=== PATIENT | female | born 1985 | race Caucasian/White ===

== ENCOUNTER 2020-02-22 11:42 | Outpatient (REF) | payer BC, SELFPAY ==
[2020-02-22 12:26] LABS: MANUAL DIFF FLAG NO
[2020-02-22 12:33] LABS: Basophils Percent Auto 0.7 % (0-2); Eosinophils Absolute Auto 0.1 X10*3/uL (0.0-0.4); Eosinophils Percent Auto 1.5 % (0-4); Hematocrit 33.6 % (37-47); Imm Gran Abs Auto 0.02 X10*3/uL (0.00-0.03); Imm Gran Pct Auto 0.4 % (0.0-0.4); Lymphocytes Absolute Auto 1.6 X10*3/uL (1.2-4.9); Lymphocytes Percent Auto 28.7 % (20-40); Mean Corpuscular HGB Conc 29.8 g/dl (31.0-35.0); Mean Corpuscular Hemoglobin 23.8 pg (27.0-33.0); Mean Corpuscular Volume 79.8 fL (80-98); Mean Platelet Volume 10.8 fL (9.4-12.3); Monocytes Absolute Auto 0.3 X10*3/uL (0.1-1.2); Neutrophils Absolute Auto 3.5 X10*3/uL (2.0-8.3); Neutrophils Percent Auto 62.7 % (45-73); Platelet Count 330 X10*3/uL (160-400); Red Blood Count 4.21 X10*6/uL (4.20-5.50); Red Cell Distribution Width 15.5 % (11.0-16.0); White Blood Count 5.5 X10*3/uL (4.8-10.8)
[2020-02-22 13:38] LABS: Anion Gap 10 (12-20); Blood Urea Nitrogen 9 mg/dL (9-16); Calcium 9.2 mg/dL (8.4-10.2); Carbon Dioxide 29 mmol/L (22-29); Chloride 105 mmol/L (96-108); Cholesterol 165 mg/dL; Estimated Glomerular Filt Rate > 60; Glucose Fasting 86 mg/dL (60-99); HDL Cholesterol 43 mg/dL; LDL Cholesterol Calculated 106 mg/dl; Potassium 4.8 mmol/l (3.3-5.1); Sodium 139 mmol/L (135-145); Triglycerides 83 mg/dL
[2020-02-22 13:59] LABS: TSH reflex Free T4 0.88 mIU/mL (0.32-4.0)
[2020-02-22 14:32] LABS: Reflex LDLD? No
== END 2020-02-22 11:43 | disposition home or self-care (01) ==
LOC: HO.LAB 11:42
PROVIDERS: PCP Nurse Practitioner Family; Visit Provider Nurse Practitioner Family
DX: Z00.00 Encounter for general adult medical examination without abnormal findings (principal); Z13.29 Encounter for screening for other suspected endocrine disorder; Z13.220 Encounter for screening for lipoid disorders
CPT/HCPCS: 36415; 80048; 80061; 84443; 85025

== ENCOUNTER 2020-02-23 13:52 | Emergency (ER) | payer BC, SELFPAY ==
[2020-02-23 14:13] VITALS: BP 148/94; PULSE 82; RESP 18; TEMP 37.4; O2SAT 100; BMI 47.7
[2020-02-23 14:56] LABS: Glucose Urine UA NEG (NEG); Leukocyte Esterase Urine NEG (NEG); Nitrite Urine NEG (NEG); Urine Blood 2+ (NEG); Urine Ketones NEG (NEG); Urine Protein NEG (NEG-TRACE)
[2020-02-23 15:01] LABS: UPreg QC Valid YES; Urine Pregnancy NEGATIVE (NEGATIVE)
[2020-02-23 15:02] LABS: Appearance Urine HAZY; Color Urine YELLOW
[2020-02-23 15:14] LABS: Amorphous Sediment Urine 1+ /LPF; Mucus Urine 2+ /LPF; Squamous Epithelial Cell Urine 2+ /LPF
[2020-02-23 16:45] VITALS: BP 150/90; PULSE 76; RESP 20; TEMP 37.2; O2SAT 97
[2020-02-23 16:52] VITALS: BP 156/87; PULSE 154
--- NOTE | 2020-02-23 16:54 | PC.NURSE ---
SEEN BY DR HASSAN AT THIS TIME
--- NOTE | 2020-02-23 17:04 | ED.FEMALEGU ---
HPI - Female Genitourinary General Chief complaint: Urogenital-Female Stated complaint: vaginal bleeding Time Seen by Provider: 02/23/20 16:46 Source: patient Mode of arrival: ambulatory Limitations: no limitations History of Present Illness HPI Narrative: Patient received Depo shot 2 months ago since for the 1st time since then been having heavy periods changing about 6-7 pads a day seen primary care doctor yesterday that the labs which is not available at this time. Patient feels weak and tired no shortness of breath no significant abdominal pain no history of heavy period in the past Related Data Previous Rx's Medication Instructions Recorded ferrous sulfate 325 mg PO DAILY #30 tab 02/23/20 Allergies Allergy/AdvReac Type Severity Reaction Status Date / Time No Known Allergies Allergy Verified 02/23/20 14:10 Review of Systems Review of Systems: Yes all other systems are reviewed and are negative Constitutional: Constitutional: Reports fatigue and Reports weakness Eyes: Eyes: Reports no additional eye complaints ENT: Reports system reviewed and no additional complaints, except as documented Cardiovascular: Cardiovascular: Reports no additional cardiovascular complaints Respiratory: Respiratory: Reports no additional respiratory complaints Gastrointestinal: Gastrointestinal: Reports no additional gastrointestinal complaints Genitourinary: Genitourinary: Reports as per HPI Neurologic: Reports weakness Endocrine: Endocrine: Reports fatigue [facility] Past Medical History Medical History PCOS (polycystic ovarian syndrome) Social History Social History Advance Directives: No Advance Directives Information Provided: Yes Physical Exam Vital Signs and I&O and Narrative: Vital Signs and I&O: Vital Signs Temp 98.9 F 02/23/20 16:45 Pulse 81 02/23/20 18:15 Resp 16 02/23/20 18:15 BP 141/83 H 02/23/20 18:15 Pulse Ox 100 02/23/20 18:15 Intake & Output 02/23/20 02/23/20 02/24/20 06:59 18:59 06:59 Weight 146.51 kg Body Mass Index 47.7 Const: General: cooperative and healthy appearing Nutritional Appearance: average body habitus Orientation/consciousness: oriented to person, oriented to place and oriented to time Limitations: no limitations HENMT: Head: Yes normal to inspection Ears: hearing grossly normal bilaterally Eyes: General: appearance normal, both eyes and all related structures Conjunctivae: conjunctivae normal Sclerae: sclerae normal Neck: Neck: Yes normal visual inspection Chest: Chest palpation & inspection: normal inspection of the chest Resp: Effort & Inspection: normal respiratory effort Auscultation: clear to auscultation bilaterally Cardio: Rate: regular rate Rhythm: regular rhythm Heart sounds: S1 normal heart sound present and S2 normal heart sound present GI: Inspection: Yes normal to inspection Palpation (GI): Soft to palpation and nontender Percussion: Yes normal to percussion Auscultation: normal bowel sounds Neuro: General: oriented to person, oriented to place and oriented to time Extrem: General: Yes normal to inspection Course Course Course Narrative: patient with stable H&H is 9.4 yesterday was 10. patient without any orthostatic hypotension feeling much better otherwise case discussed with loss prevention specialist Dr. Lehman advised to follow-up as outpatient. MDM - Female Genitourinary Lab Data Result diagrams: 02/23/20 17:06 02/23/20 17:06 Labs: Lab Results 02/23/20 02/23/20 02/23/20 Range/Units 14:30 14:30 17:06 WBC 6.8 (4.8-10.8) X10*3/uL RBC 3.96 L (4.20-5.50) X10*6/uL Hgb 9.4 L (12.0-16.0) g/dl Hct 31.5 L (37-47) % MCV 79.5 L (80-98) fL MCH 23.7 L (27.0-33.0) pg MCHC 29.8 L (31.0-35.0) g/dl RDW 15.5 (11.0-16.0) % Plt Count 323 (160-400) X10*3/uL MPV 10.7 (9.4-12.3) fL Immature Gran % (Auto) 0.3 (0.0-0.4) % Neut % (Auto) 59.9 (45-73) % Lymph % (Auto) 30.8 (20-40) % [place] % (Auto) 6.5 (2-11) % Eos % (Auto) 2.1 (0-4) % Baso % (Auto) 0.4 (0-2) % Neut # (Auto) 4.0 (2.0-8.3) X10*3/uL Lymph # (Auto) 2.1 (1.2-4.9) X10*3/uL [place] # (Auto) 0.4 (0.1-1.2) X10*3/uL Eos # (Auto) 0.1 (0.0-0.4) X10*3/uL Baso # (Auto) 0.0 (0.0-0.2) X10*3/uL Abs Immat Gran (auto) 0.02 (0.00-0.03) X10*3/uL Absolute Nucleated RBC 0.000 (0.0-0.012) X10*3/uL Nucleated RBC % (auto) 0.0 (0.0-0.2) /100WBC Sodium (135-145) mmol/L Potassium (3.3-5.1) mmol/l Chloride (96-108) mmol/L Carbon Dioxide (22-29) mmol/L Anion Gap (12-20) BUN (9-16) mg/dL Creatinine (0.5-1.4) mg/dL Estim Creat Clear Calc Estimated GFR Random Glucose (60-115) mg/dL Calcium (8.4-10.2) mg/dL Urine Color YELLOW Urine Appearance HAZY Urine pH 7.0 (5.0-8.0) Ur Specific [place] 1.020 (1.005-1.025) Urine Protein NEG (NEG-TRACE) MG/DL Urine Glucose (UA) NEG (NEG) MG/DL Urine Ketones NEG (NEG) MG/DL Urine Blood 2+ H (NEG) Urine Nitrite NEG (NEG) Ur Leukocyte Esterase NEG (NEG) Urine RBC 15-29 H (0) /HPF Urine WBC 1-4 (0-4) /HPF Ur Squamous Epith Cells 2+ /LPF Amorphous Sediment 1+ /LPF Urine Bacteria NONE /LPF Urine Mucus 2+ /LPF Urine Test NEGATIVE (NEGATIVE) 02/23/20 Range/Units 17:06 WBC (4.8-10.8) X10*3/uL RBC (4.20-5.50) X10*6/uL Hgb (12.0-16.0) g/dl Hct (37-47) % MCV (80-98) fL MCH (27.0-33.0) pg MCHC (31.0-35.0) g/dl RDW (11.0-16.0) % Plt Count (160-400) X10*3/uL MPV (9.4-12.3) fL Immature Gran % (Auto) (0.0-0.4) % Neut % (Auto) (45-73) % Lymph % (Auto) (20-40) % [place] % (Auto) (2-11) % Eos % (Auto) (0-4) % Baso % (Auto) (0-2) % Neut # (Auto) (2.0-8.3) X10*3/uL Lymph # (Auto) (1.2-4.9) X10*3/uL [place] # (Auto) (0.1-1.2) X10*3/uL Eos # (Auto) (0.0-0.4) X10*3/uL Baso # (Auto) (0.0-0.2) X10*3/uL Abs Immat Gran (auto) (0.00-0.03) X10*3/uL Absolute Nucleated RBC (0.0-0.012) X10*3/uL Nucleated RBC % (auto) (0.0-0.2) /100WBC Sodium 139 (135-145) mmol/L Potassium 4.6 (3.3-5.1) mmol/l Chloride 106 (96-108) mmol/L Carbon Dioxide 26 (22-29) mmol/L Anion Gap 12 (12-20) BUN 13 (9-16) mg/dL Creatinine 0.80 (0.5-1.4) mg/dL Estim Creat Clear Calc 150.9 Estimated GFR > 60 Random Glucose 92 (60-115) mg/dL Calcium 8.9 (8.4-10.2) mg/dL Urine Color Urine Appearance Urine pH (5.0-8.0) Ur Specific [place] (1.005-1.025) Urine Protein (NEG-TRACE) MG/DL Urine Glucose (UA) (NEG) MG/DL Urine Ketones (NEG) MG/DL Urine Blood (NEG) Urine Nitrite (NEG) Ur Leukocyte Esterase (NEG) Urine RBC (0) /HPF Urine WBC (0-4) /HPF Ur Squamous Epith Cells /LPF Amorphous Sediment /LPF Urine Bacteria /LPF Urine Mucus /LPF Urine Test (NEGATIVE) Discharge Plan Discharge Clinical Impression: DUB (dysfunctional uterine bleeding) Patient Disposition: Home, Self-Care Instructions: Dysfunctional Uterine Bleeding (ED) Additional Instructions: take iron tablet daily. your bleeding will continue for few more weeks. Follow-up with loss prevention specialist if bleeding gets worse for further evaluation Prescriptions: New ferrous sulfate 325 mg (65 mg iron) tablet 325 mg PO DAILY Qty: 30 RF: 0
[2020-02-23 17:13] LABS: MANUAL DIFF FLAG NO
[2020-02-23 17:14] LABS: Basophils Percent Auto 0.4 % (0-2); Eosinophils Absolute Auto 0.1 X10*3/uL (0.0-0.4); Eosinophils Percent Auto 2.1 % (0-4); Hematocrit 31.5 % (37-47); Hemoglobin 9.4 g/dl (12.0-16.0); Imm Gran Abs Auto 0.02 X10*3/uL (0.00-0.03); Imm Gran Pct Auto 0.3 % (0.0-0.4); Lymphocytes Absolute Auto 2.1 X10*3/uL (1.2-4.9); Lymphocytes Percent Auto 30.8 % (20-40); Mean Corpuscular HGB Conc 29.8 g/dl (31.0-35.0); Mean Corpuscular Hemoglobin 23.7 pg (27.0-33.0); Mean Corpuscular Volume 79.5 fL (80-98); Mean Platelet Volume 10.7 fL (9.4-12.3); Monocytes Absolute Auto 0.4 X10*3/uL (0.1-1.2); Monocytes Percent Auto 6.5 % (2-11); Neutrophils Percent Auto 59.9 % (45-73); Platelet Count 323 X10*3/uL (160-400); Red Blood Count 3.96 X10*6/uL (4.20-5.50); Red Cell Distribution Width 15.5 % (11.0-16.0); White Blood Count 6.8 X10*3/uL (4.8-10.8)
[2020-02-23 17:43] LABS: Anion Gap 12 (12-20); Blood Urea Nitrogen 13 mg/dL (9-16); Calcium 8.9 mg/dL (8.4-10.2); Carbon Dioxide 26 mmol/L (22-29); Chloride 106 mmol/L (96-108); Creatinine Clr Calc Pharmacy 150.9; Estimated Glomerular Filt Rate > 60; Glucose Random 92 mg/dL (60-115); Potassium 4.6 mmol/l (3.3-5.1); Sodium 139 mmol/L (135-145)
[2020-02-23 18:15] VITALS: BP 141/83; PULSE 81; RESP 16; O2SAT 100
--- NOTE | 2020-02-23 18:18 | PC.NURSE ---
ALL LABS RESULTED. AWAITING REEVAL BY PROVIDER
== END 2020-02-23 19:41 | disposition home or self-care (01) ==
PROVIDERS: Emergency Provider Internal Medicine; PCP Nurse Practitioner Family
DX: N93.8 Other specified abnormal uterine and vaginal bleeding (principal)
CPT/HCPCS: 36415; 80048; 81001; 81003; 81025; 85025; 99283

== ENCOUNTER 2020-03-14 09:50 | Outpatient (REF) | payer BC, SELFPAY ==
[2020-03-14 12:41] LABS: Hematocrit 30.1 % (37-47); Hemoglobin 8.7 g/dl (12.0-16.0); Mean Corpuscular HGB Conc 28.9 g/dl (31.0-35.0); Mean Corpuscular Hemoglobin 23.2 pg (27.0-33.0); Mean Corpuscular Volume 80.3 fL (80-98); Mean Platelet Volume 11.1 fL (9.4-12.3); Platelet Count 327 X10*3/uL (160-400); Red Blood Count 3.75 X10*6/uL (4.20-5.50); Red Cell Distribution Width 15.5 % (11.0-16.0); White Blood Count 5.8 X10*3/uL (4.8-10.8)
[2020-03-15 01:51] LABS: CT PCR NOT DETECTED (Not Detect.); NG PCR NOT DETECTED (Not Detect.)
[2020-03-15 11:27] LABS: BV Int Neg Control Negative (Negative); BV Int Pos Control Positive (Positive)
[2020-03-18 22:07] LABS: HPV mRNA E6/E7 Not Detected (Not Detected)
== END 2020-03-14 09:51 | disposition home or self-care (01) ==
LOC: HO.LAB 09:50
PROVIDERS: PCP Nurse Practitioner Family; Referring Provider Nurse Practitioner Family; Visit Provider Advanced Practice Midwife
DX: N93.9 Abnormal uterine and vaginal bleeding, unspecified (principal); E66.01 Morbid (severe) obesity due to excess calories; Z20.2 Contact with and (suspected) exposure to infections with a predominantly sexual mode of transmission; Z30.09 Encounter for other general counseling and advice on contraception; Z68.42 Body mass index [BMI] 45.0-49.9, adult
CPT/HCPCS: 58100; 36415; 85027; 87480; 87491; 87510; 87591; 87624; 87625; 87660; 88142; 88305

== ENCOUNTER 2020-03-28 10:50 | Outpatient (REF) | payer BC, SELFPAY ==
--- NOTE | 2020-03-28 10:56 | US_ITS ---
EXAMINATION: US PELVIC, COMPLETE CLINICAL INFORMATION: Abnormal uterine bleeding. Last menstrual period since December and ongoing. No pain. COMPARISON: None. TECHNIQUE: Transabdominal and transvaginal imaging was performed. FINDINGS: The uterus is anteverted of normal size and echogenicity measuring 7.2 x 3.8 x 4.8 cm. A regular homogeneous endometrium is identified measuring 0.2 cm. Small nabothian cysts are seen at the cervix. Both ovaries are of normal size and echogenicity. The right measures 3.7 x 1.7 x 2.3 cm for a volume of 7.7 mL. The left measures 2.8 x 2.3 x 2.8 cm for a volume of 9.5 mL. There is no pelvic free fluid. US/US transvaginal IMPRESSION: Unremarkable pelvic ultrasound.
--- NOTE | 2020-03-28 10:56 | US_ITS ---
EXAMINATION: US PELVIC, COMPLETE CLINICAL INFORMATION: Abnormal uterine bleeding. Last menstrual period since December and ongoing. No pain. COMPARISON: None. TECHNIQUE: Transabdominal and transvaginal imaging was performed. FINDINGS: The uterus is anteverted of normal size and echogenicity measuring 7.2 x 3.8 x 4.8 cm. A regular homogeneous endometrium is identified measuring 0.2 cm. Small nabothian cysts are seen at the cervix. Both ovaries are of normal size and echogenicity. The right measures 3.7 x 1.7 x 2.3 cm for a volume of 7.7 mL. The left measures 2.8 x 2.3 x 2.8 cm for a volume of 9.5 mL. There is no pelvic free fluid. US/US pelvic complete IMPRESSION: Unremarkable pelvic ultrasound.
== END 2020-03-28 10:51 | disposition home or self-care (01) ==
LOC: HO.US 10:50
PROVIDERS: PCP Nurse Practitioner Family; Visit Provider Advanced Practice Midwife
DX: N93.9 Abnormal uterine and vaginal bleeding, unspecified (principal)
CPT/HCPCS: 76830; 76856

== ENCOUNTER → 2020-04-04 08:16 | Outpatient (BNVA) | payer BC, SELFPAY | PROVIDERS: PCP Nurse Practitioner Family; Referring Provider Nurse Practitioner Family; Visit Provider Advanced Practice Midwife | DX: Z76.89 Persons encountering health services in other specified circumstances (principal) | CPT/HCPCS: J7298 ==

== ENCOUNTER 2020-05-18 08:40 | Outpatient (REF) | payer BC, SELFPAY ==
[2020-05-18 10:24] LABS: Hematocrit 31.8 % (37-47); Mean Corpuscular HGB Conc 28.3 g/dl (31.0-35.0); Mean Corpuscular Hemoglobin 20.9 pg (27.0-33.0); Mean Platelet Volume 10.8 fL (9.4-12.3); Platelet Count 320 X10*3/uL (160-400); Red Cell Distribution Width 16.1 % (11.0-16.0); White Blood Count 4.7 X10*3/uL (4.8-10.8)
[2020-05-22 02:47] LABS: HPV mRNA E6/E7 rflx Not Detected (Not Detected)
== END 2020-05-18 08:41 | disposition home or self-care (01) ==
LOC: HO.LAB 08:40
PROVIDERS: PCP Nurse Practitioner Family; Visit Provider Advanced Practice Midwife
DX: Z12.4 Encounter for screening for malignant neoplasm of cervix (principal); N93.9 Abnormal uterine and vaginal bleeding, unspecified; D64.9 Anemia, unspecified; Z80.3 Family history of malignant neoplasm of breast; R87.615 Unsatisfactory cytologic smear of cervix
CPT/HCPCS: 36415; 85027; 87624; 88142

== ENCOUNTER 2021-03-22 09:51 | Outpatient (REF) | payer BC, SELFPAY ==
[2021-03-22 10:02] LABS: MANUAL DIFF FLAG NO
[2021-03-22 10:32] LABS: Basophils Percent Auto 0.6 % (0-2); Eosinophils Absolute Auto 0.1 X10*3/uL (0.0-0.4); Eosinophils Percent Auto 1.1 % (0-4); Hematocrit 41.6 % (37.0-47.0); Hemoglobin 12.7 g/dl (12.0-16.0); Imm Gran Abs Auto 0.01 X10*3/uL (0.00-0.03); Imm Gran Pct Auto 0.2 % (0.0-0.4); Lymphocytes Absolute Auto 1.2 X10*3/uL (1.2-4.9); Lymphocytes Percent Auto 26.8 % (20-40); Mean Corpuscular HGB Conc 30.5 g/dl (31.0-35.0); Mean Corpuscular Volume 85.1 fL (80.0-98.0); Mean Platelet Volume 10.5 fL (9.4-12.3); Monocytes Absolute Auto 0.4 X10*3/uL (0.1-1.2); Monocytes Percent Auto 8.2 % (2-11); Neutrophils Absolute Auto 2.92 x10*3/uL (2.0-8.3); Neutrophils Percent Auto 63.1 % (45-73); Platelet Count 273 X10*3/uL (160-400); Red Blood Count 4.89 X10*6/uL (4.20-5.50); Red Cell Distribution Width 14.9 % (11.0-16.0); White Blood Count 4.6 X10*3/uL (4.8-10.8)
[2021-03-22 10:48] LABS: Estimated Average Glucose 105 mg/dL; Hemoglobin A1C 116.7372 umol/L; Hemoglobin A1c % 5.3 %
[2021-03-22 11:12] LABS: Alanine Aminotransferase 23 U/L (0-31); Albumin Level 4.4 g/dL (3.5-5.0); Alkaline Phosphatase 71 U/L (39-117); Anion Gap 11 (12-20); Aspartate Amino Transferase 18 U/L (5-31); Bilirubin Total 0.5 mg/dL (0.0-1.0); Blood Urea Nitrogen 10 mg/dL (9-16); Carbon Dioxide 27 mmol/L (22-29); Chloride 104 mmol/L (96-108); Cholesterol 158 mg/dL; Estimated Glomerular Filt Rate > 60; Glucose Fasting 84 mg/dL (60-99); HDL Cholesterol 39 mg/dL; LDL Cholesterol Calculated 101 mg/dl; Potassium 4.2 mmol/L (3.3-5.1); Sodium 138 mmol/L (135-145); Total Protein 7.4 g/dL (6.5-8.0); Triglycerides 90 mg/dL
[2021-03-22 11:17] LABS: Thyroid Stimulating Hormone 1.11 uIU/mL (0.32-4.0)
[2021-03-27 12:46] LABS: Vitamin D 25-OH, D2 <4 ng/mL; Vitamin D 25-OH, D3 9 ng/mL; Vitamin D 25-OH, Total 9 ng/mL (30-100)
== END 2021-03-22 09:52 | disposition home or self-care (01) ==
LOC: HO.LAB 09:51
PROVIDERS: PCP Internal Medicine; Visit Provider Internal Medicine
DX: E11.40 Type 2 diabetes mellitus with diabetic neuropathy, unspecified (principal); E66.01 Morbid (severe) obesity due to excess calories; Z68.42 Body mass index [BMI] 45.0-49.9, adult; E78.5 Hyperlipidemia, unspecified; E55.9 Vitamin D deficiency, unspecified; D64.9 Anemia, unspecified
CPT/HCPCS: 36415; 80053; 80061; 82306; 83036; 84443; 85025

== ENCOUNTER → 2021-04-04 07:52 | Outpatient (BNVA) | payer BC, SELFPAY | PROVIDERS: PCP Internal Medicine; Visit Provider Advanced Practice Midwife ==

== ENCOUNTER 2021-04-14 13:07 | Outpatient (REF) | payer BC, SELFPAY ==
--- NOTE | ~2021-04-14 | MM_ITS ---
EXAMINATION: MM DIAGNOSTIC DIGITAL BREAST TOMOSYNTHESIS, BILATERAL US DIAGNOSTIC ULTRASOUND BREAST, LEFT CLINICAL INFORMATION: 35-year-old with area of palpable concern noted at routine clinical exam upper inner quadrant left breast. Family history breast cancer, mother at age 43. No prior breast imaging. The lifetime risk of breast cancer based on the Tyrer-Cuzick Model is 34%. COMPARISON: None (current study represents initial baseline exam). TECHNIQUE: Digital breast tomosynthesis is performed in both the craniocaudal and mediolateral oblique views along with computer-aided detection (CAD). Synthesized 2D images are generated from the tomosynthesis. Ultrasound left breast is targeted to the upper inner quadrant. Grayscale imaging and color Doppler are performed without and with harmonics. FINDINGS: The breasts are almost entirely fatty (ACR BI-RADS breast composition Category a). There are no significant masses, abnormal calcifications, or other abnormalities. The axilla and skin contours are unremarkable. There is no mammographic correlate for recent clinical exam. Ultrasound demonstrates no cystic or solid mass or architectural abnormality. No focal duct ectasia. No skin thickening. Results are discussed with the patient at time of visit. MM/MM tomosynthesis diagnostic BI IMPRESSION: No mammographic evidence of malignancy. Unremarkable targeted left breast ultrasound. ASSESSMENT: BI-RADS 1: Negative RECOMMENDATION: 1. Patient should be managed based on the clinical impression. 2. Routine annual screening mammography. 3. The lifetime risk of breast cancer based on the Tyrer-Cuzick Model is 34%. Additional annual adjunct screening with breast MRI may be of benefit in women with a risk score of 20% or greater. This patient's information was entered into a reminder system with a target due date for their next mammogram.
== END 2021-04-14 13:08 | disposition home or self-care (01) ==
LOC: HO.MAMMO 13:07
PROVIDERS: Visit Provider Advanced Practice Midwife
DX: N63.22 Unspecified lump in the left breast, upper inner quadrant (principal); Z80.3 Family history of malignant neoplasm of breast
CPT/HCPCS: 76642; 77062; 77066

== ENCOUNTER 2021-07-19 10:42 | Outpatient (REF) | payer OTHER, SELFPAY ==
--- NOTE | ~2021-07-19 | XR_ITS ---
EXAMINATION: XR CHEST CLINICAL INFORMATION: Chronic cough COMPARISON: None TECHNIQUE: Frontal view of the chest was obtained. FINDINGS: No significant abnormality is noted involving the heart, lungs, mediastinum, bony thorax or soft tissues. XR/XR chest 1V IMPRESSION: Unremarkable chest examination.
[2021-07-19 11:14] LABS: MANUAL DIFF FLAG NO
[2021-07-19 11:31] LABS: Basophils Percent Auto 0.4 % (0-2); Eosinophils Absolute Auto 0.1 X10*3/uL (0.0-0.4); Eosinophils Percent Auto 1.2 % (0-4); Hematocrit 40.1 % (37.0-47.0); Imm Gran Abs Auto 0.01 X10*3/uL (0.00-0.03); Imm Gran Pct Auto 0.2 % (0.0-0.4); Lymphocytes Absolute Auto 1.2 X10*3/uL (1.2-4.9); Lymphocytes Percent Auto 23.8 % (20-40); Mean Corpuscular HGB Conc 32.4 g/dl (31.0-35.0); Mean Corpuscular Hemoglobin 28.1 pg (27.0-33.0); Mean Corpuscular Volume 86.8 fL (80.0-98.0); Mean Platelet Volume 10.6 fL (9.4-12.3); Monocytes Absolute Auto 0.4 X10*3/uL (0.1-1.2); Monocytes Percent Auto 7.3 % (2-11); Neutrophils Absolute Auto 3.3 x10*3/uL (2.0-8.3); Neutrophils Percent Auto 67.1 % (45-73); Platelet Count 242 X10*3/uL (160-400); Red Blood Count 4.62 X10*6/uL (4.20-5.50); Red Cell Distribution Width 14.4 % (11.0-16.0); White Blood Count 4.9 X10*3/uL (4.8-10.8)
[2021-07-19 11:40] LABS: Estimated Average Glucose 105 mg/dL; Hemoglobin A1c % 5.3 %
[2021-07-19 12:06] LABS: Appearance Urine HAZY; Color Urine YELLOW; Glucose Urine UA NEG (NEG); Leukocyte Esterase Urine NEG (NEG); Nitrite Urine NEG (NEG); Specific Gravity - Urine 1.025 (1.005-1.025); Urine Blood 1+ (NEG); Urine Ketones 15 MG/DL (NEG); Urine Protein NEG (NEG-TRACE)
[2021-07-19 12:16] LABS: Bacteria Urine TRACE /LPF; RBC Urine 0-2 /HPF (0); Squamous Epithelial Cell Urine 4+ /LPF; WBC Urine 0 /HPF (0-4)
[2021-07-19 12:22] LABS: Alanine Aminotransferase 21 U/L (0-31); Albumin Level 4.2 g/dL (3.5-5.0); Alkaline Phosphatase 74 U/L (39-117); Anion Gap 11 (12-20); Aspartate Amino Transferase 17 U/L (5-31); Bilirubin Total 0.4 mg/dL (0.0-1.0); Blood Urea Nitrogen 15 mg/dL (9-16); Calcium 9.3 mg/dL (8.4-10.2); Carbon Dioxide 27 mmol/L (22-29); Chloride 104 mmol/L (96-108); Cholesterol 183 mg/dL; Estimated Glomerular Filt Rate > 60; Glucose Random 82 mg/dL (60-115); HDL Cholesterol 40 mg/dL; LDL Cholesterol Calculated 125 mg/dl; Potassium 4.4 mmol/L (3.3-5.1); Sodium 138 mmol/L (135-145); Total Protein 7.4 g/dL (6.5-8.0); Triglycerides 90 mg/dL
[2021-07-19 12:24] LABS: TSH reflex Free T4 0.58 uIU/mL (0.32-4.0)
[2021-07-19 12:34] LABS: Folate 13.4 ng/mL (> or = 4.0); Vitamin B12 272 pg/mL (200-900)
[2021-07-19 17:55] LABS: Appearance Urine CLEAR; Color Urine YELLOW; Glucose Urine UA NEG (NEG); Leukocyte Esterase Urine NEG (NEG); Nitrite Urine NEG (NEG); Specific Gravity - Urine 1.025 (1.005-1.025); Urine Blood 1+ (NEG); Urine Ketones 15 MG/DL (NEG); Urine Protein NEG (NEG-TRACE)
[2021-07-19 18:17] LABS: RBC Urine 0-2 /HPF (0); Squamous Epithelial Cell Urine TRACE /LPF; WBC Urine 0-2 /HPF (0-4)
[2021-07-19 18:28] LABS: Bacteria Urine TRACE /LPF
[2021-07-19 18:29] LABS: Amorphous Sediment Urine 2+ /LPF
[2021-07-23 14:26] LABS: Vitamin D 25-OH, D2 <4 ng/mL; Vitamin D 25-OH, D3 7 ng/mL; Vitamin D 25-OH, Total 7 ng/mL (30-100)
== END 2021-07-19 10:43 | disposition home or self-care (01) ==
LOC: HO.XRAY 10:42
PROVIDERS: PCP Internal Medicine; Visit Provider Nurse Practitioner Acute Care
DX: R05.3 Chronic cough (principal); R53.82 Chronic fatigue, unspecified; U09.9 Post COVID-19 condition, unspecified
CPT/HCPCS: 36415; 71045; 80053; 80061; 81001; 82306; 82607; 82746; 83036; 84443; 85025

== ENCOUNTER → 2021-07-31 14:17 | Outpatient (BNVA) | payer OTHER, SELFPAY | PROVIDERS: PCP Internal Medicine; Visit Provider Physician Assistant Surgical | DX: E66.01 Morbid (severe) obesity due to excess calories (principal); Z11.0 Encounter for screening for intestinal infectious diseases; Z68.41 Body mass index [BMI] 40.0-44.9, adult | CPT/HCPCS: 99202; 99211 ==

== ENCOUNTER 2021-08-01 15:51 | Outpatient (REF) | payer OTHER, SELFPAY ==
[2021-08-02 16:24] LABS: H Pylori Breath Test Negative (Negative)
== END 2021-08-01 15:52 | disposition home or self-care (01) ==
LOC: HO.LNP 15:51
PROVIDERS: Visit Provider Physician Assistant Surgical
DX: E66.01 Morbid (severe) obesity due to excess calories (principal)
CPT/HCPCS: 83013

== ENCOUNTER 2021-08-10 09:15 | Outpatient (REF) | payer OTHER, SELFPAY ==
--- NOTE | ~2021-08-10 | XR_ITS ---
EXAMINATION: XR CHEST 2 VIEWS CLINICAL INFORMATION: Morbid obesity. COMPARISON: Chest radiograph dated 08/06/2021. TECHNIQUE: Frontal and lateral views of the chest were obtained. FINDINGS: The heart, great vessels, pulmonary vasculature and mediastinum are normal. The lungs show no focal infiltrate, effusion or pneumothorax. There is no acute osseous abnormality. XR/XR chest 2V IMPRESSION: No active cardiopulmonary disease.
--- NOTE | 2021-08-10 09:23 | ECG_ITS ---
Test Reason : E66.01 Blood Pressure : / mmHG Vent. Rate : 064 BPM Atrial Rate : 064 BPM P-R Int : 144 ms QRS Dur : 086 ms QT Int : 412 ms P-R-T Axes : 009 017 -03 degrees QTc Int : 425 ms Normal sinus rhythm Normal ECG No previous ECGs available Referred By: Jimy Velez Electronically Signed By:MARK HOGAN MD
[2021-08-10 09:38] LABS: MANUAL DIFF FLAG NO
[2021-08-10 10:04] LABS: Basophils Percent Auto 0.4 % (0-2); Eosinophils Absolute Auto 0.1 X10*3/uL (0.0-0.4); Eosinophils Percent Auto 1.1 % (0-4); Hematocrit 41.5 % (37.0-47.0); Hemoglobin 13.5 g/dl (12.0-16.0); Imm Gran Abs Auto 0.01 X10*3/uL (0.00-0.03); Imm Gran Pct Auto 0.2 % (0.0-0.4); Lymphocytes Absolute Auto 1.2 X10*3/uL (1.2-4.9); Mean Corpuscular HGB Conc 32.5 g/dl (31.0-35.0); Mean Corpuscular Hemoglobin 28.2 pg (27.0-33.0); Mean Corpuscular Volume 86.8 fL (80.0-98.0); Mean Platelet Volume 11.2 fL (9.4-12.3); Monocytes Absolute Auto 0.4 X10*3/uL (0.1-1.2); Monocytes Percent Auto 8.3 % (2-11); Platelet Count 230 X10*3/uL (160-400); Red Blood Count 4.78 X10*6/uL (4.20-5.50); Red Cell Distribution Width 14.4 % (11.0-16.0); White Blood Count 4.6 X10*3/uL (4.8-10.8)
[2021-08-10 10:43] LABS: Alanine Aminotransferase 23 U/L (0-31); Albumin Level 4.2 g/dL (3.5-5.0); Alkaline Phosphatase 64 U/L (39-117); Anion Gap 12 (12-20); Aspartate Amino Transferase 18 U/L (5-31); Bilirubin Total 0.5 mg/dL (0.0-1.0); Blood Urea Nitrogen 12 mg/dL (9-16); C Reactive Protein 0.45 mg/dL (< or = 0.50); Calcium 9.5 mg/dL (8.4-10.2); Carbon Dioxide 25 mmol/L (22-29); Chloride 106 mmol/L (96-108); Cholesterol 142 mg/dL; Estimated Glomerular Filt Rate > 60; Glucose Random 92 mg/dL (60-115); HDL Cholesterol 38 mg/dL; Iron 40 mcg/dL (30-160); LDL Cholesterol Calculated 91 mg/dl; Percent Iron Saturation 10 % (15-50); Potassium 4.8 mmol/L (3.3-5.1); Sodium 138 mmol/L (135-145); Total Iron Binding Capacity 383 mcg/dL (228-428); Total Protein 7.2 g/dL (6.5-8.0); Triglycerides 67 mg/dL; Unsaturated Iron Binding 343 ug/dL
[2021-08-10 10:47] LABS: Estimated Average Glucose 103 mg/dL; Hemoglobin A1c % 5.2 %
[2021-08-10 10:57] LABS: Ferritin 9 ng/mL (10-122); TSH reflex Free T4 0.11 uIU/mL (0.32-4.0)
[2021-08-10 11:04] LABS: Folate 11.7 ng/mL (> or = 4.0); Vitamin B12 329 pg/mL (200-900)
[2021-08-10 14:52] LABS: Vitamin D 25-OH Total 7.5 ng/mL (>30)
[2021-08-11 15:45] LABS: Calcium (PTHI) 9.5 mg/dL (8.6-10.2); PTHI 56 pg/mL (16-77)
[2021-08-15 03:37] LABS: Zinc 71 mcg/dL (60-130)
[2021-08-16 13:30] LABS: Vitamin B1 <6 nmol/L (8-30)
[2021-08-17 10:57] LABS: Vitamin A 30 mcg/dL (38-98)
== END 2021-08-10 09:16 | disposition home or self-care (01) ==
LOC: HO.XRAY 09:15
PROVIDERS: PCP Internal Medicine; Visit Provider Physician Assistant Surgical
DX: Z01.818 Encounter for other preprocedural examination (principal); E66.01 Morbid (severe) obesity due to excess calories
CPT/HCPCS: 36415; 71046; 80053; 80061; 82306; 82607; 82728; 82746; 83036; 83540; 83970; 84425; 84439; 84443; 84590; 84630; 85025; 86140; 93005

== ENCOUNTER 2021-08-15 10:18 | Outpatient (REF) | payer OTHER, SELFPAY ==
[2021-08-15 12:13] LABS: Free T4 (Free Thyroxine) 0.92 ng/dL (0.71-1.85); Thyroid Stimulating Hormone 0.28 uIU/mL (0.32-4.0)
== END 2021-08-15 10:19 | disposition home or self-care (01) ==
LOC: HO.LAB 10:18
PROVIDERS: PCP Internal Medicine; Visit Provider Internal Medicine
DX: E07.9 Disorder of thyroid, unspecified (principal)
CPT/HCPCS: 36415; 84439; 84443

== ENCOUNTER → 2021-08-16 13:00 | Outpatient (BNVA) | payer OTHER, SELFPAY | PROVIDERS: PCP Internal Medicine; Visit Provider Counselor Mental Health | DX: F50.81 Binge eating disorder (principal); E66.01 Morbid (severe) obesity due to excess calories | CPT/HCPCS: 90791 ==

== ENCOUNTER → 2021-08-21 13:09 | Outpatient (BNVA) | payer OTHER, SELFPAY | PROVIDERS: PCP Internal Medicine; Referring Provider Internal Medicine; Visit Provider Dietitian, Registered | DX: E66.01 Morbid (severe) obesity due to excess calories (principal); Z68.41 Body mass index [BMI] 40.0-44.9, adult | CPT/HCPCS: 97802 ==

== ENCOUNTER → 2021-08-28 11:26 | Outpatient (BNVA) | payer OTHER, SELFPAY | PROVIDERS: PCP Internal Medicine; Referring Provider Internal Medicine; Visit Provider Physician Assistant Surgical | DX: E66.01 Morbid (severe) obesity due to excess calories (principal); Z68.41 Body mass index [BMI] 40.0-44.9, adult; Z71.3 Dietary counseling and surveillance | CPT/HCPCS: 99212 ==

== ENCOUNTER 2021-09-12 08:56 | Outpatient (REF) | payer OTHER, SELFPAY ==
--- NOTE | ~2021-09-12 | US_ITS ---
EXAMINATION: US COMPLETE ABDOMEN WITH LIVER ELASTOGRAPHY CLINICAL INFORMATION: Morbid obesity. COMPARISON: None. TECHNIQUE: Real-time imaging of the abdominal viscera. Noninvasive ultrasound liver fibrosis assessment is performed using Theodore ElastPQ point quantification shear wave elastography (2D-SWE) with a C5-2 MHz transducer. Multiple elastography samples are obtained. FINDINGS: PANCREAS: Normal. The visualized pancreatic head and body are normal in appearance. The remainder of the pancreas is obscured from visualization by the overlying bowel gas. ABDOMINAL AORTA: The proximal, middle, and distal aortic segments are normal in caliber. INFERIOR VENA CAVA: Visualized portions are normal. LIVER: Diffusely echogenic liver suggesting hepatic steatosis. The right lobe measures 14.4 cm in length. The left lobe measures 8.5 cm in length. Portal flow is hepatopedal Shear wave liver elastography median stiffness is 1.86 m/s (reference: normal median stiffness is 1.3 m/s or less). IQR/median stiffness to assess sampling precision is 0.23 (reference: good quality data set is IQR/median stiffness of 0.15 or less). GALLBLADDER: Normal. The gallbladder is physiologically distended without evidence of stones, sludge, polyps, wall thickening or pericholecystic fluid. COMMON BILE DUCT: Normal in caliber measuring 0.2 cm in diameter. RIGHT KIDNEY: Normal. No hydronephrosis. No renal calculi or focal parenchymal lesions. The kidney measures 12 cm in maximum dimension. LEFT KIDNEY: Normal. No hydronephrosis. No renal calculi or focal parenchymal lesions. The kidney measures 11 cm in maximum dimension. SPLEEN: Normal. The spleen measures 12 cm in maximum dimension. FREE FLUID: None. US/US abdomen comp w elastography IMPRESSION: 1. . Increased echogenicity of the liver parenchyma, this can be seen in the setting of hepatic steatosis or liver parenchymal disease. 2. Liver elastography: Although measurements are suggestive of compensated advanced chronic liver disease, there is statistical variability of the sampling which decreases accuracy. REFERENCE: Society of Radiologists in Ultrasound Liver Stiffness Thresholds (2020): LIVER STIFFNESS THRESHOLDS: *Liver Stiffness equal or less than 1.3 m/s: High probability of being normal. *Liver Stiffness less than 1.7 m/s: In the absence of other known clinical signs, rules out compensated advanced chronic liver disease. *Liver Stiffness 1.7-2.1 m/s: Suggestive of compensated advanced chronic liver disease but need further test for confirmation. *Liver Stiffness over 2.1 m/s: Rules in compensated advanced chronic liver disease. *Liver Stiffness over 2.4 m/s: Suggestive of clinically significant portal hypertension. QUALITY OF DATA SET: *IQR/Median value equal or less than 0.15 implies a quality data set. *IQR/Median value over 0.15 implies a poor quality data set. SIGNIFICANT CHANGE FROM PRIOR EXAM: Significant change if liver stiffness measurement is 10% or greater from prior exam. OTHER CONSIDERATIONS: The stage of liver fibrosis may be overestimated in the setting of acute hepatitis, liver inflammation, elevated liver function tests, hepatic vascular congestion, obstructive cholestasis, non-fasting state, and infiltrative diseases such as amyloidosis and lymphoma. In some patients with NAFLD, the liver stiffness thresholds for compensated advanced chronic liver disease may be lower. In causes other than viral hepatitis and NAFLD, liver stiffness thresholds are not well established.
--- NOTE | ~2021-09-12 | FL_ITS ---
EXAMINATION: XR FLUOROSCOPY UPPER GI WITH AIR CLINICAL INFORMATION: Morbid obesity due to excess calories COMPARISON: None TECHNIQUE: Routine upper GI air-contrast study was performed in upright and lying position. FINDINGS: Following oral administration of thick barium and effervescent granules there is normal propagation of bolus from the oral cavity through the pharynx, esophagus and stomach without any evidence of obstruction, narrowing or stricture. On placing patient supine and prone, the course, caliber and peristalsis of the stomach and duodenum is normal. The mucosal pattern of the esophagus, stomach and the duodenum is normal. There is mild gastroesophageal reflux without hiatal hernia. FLUOROSCOPY TIME: 1.5 minutes DOSE AREA PRODUCT: 32.231 uGy-m2 (microgray-meter squared) FL/FL upper GI w air IMPRESSION: Mild gastroesophageal reflux otherwise unremarkable upper GI exam.
== END 2021-09-12 08:57 | disposition home or self-care (01) ==
LOC: HO.US 08:56
PROVIDERS: PCP Internal Medicine; Visit Provider Surgery
DX: E66.01 Morbid (severe) obesity due to excess calories (principal)
CPT/HCPCS: 74246; 76705; 76981

== ENCOUNTER 2021-09-18 15:46 | Outpatient (REF) | payer OTHER, SELFPAY ==
--- NOTE | ~2021-09-18 | US_ITS ---
EXAMINATION: US THYROID CLINICAL INFORMATION: Nontoxic goiter. COMPARISON: None TECHNIQUE: Linear transducer grayscale and color Doppler examination with attention to the region of the thyroid. FINDINGS: SIZE: Measurements of the thyroid lobes and nodules are given in sagittal, anteroposterior and transverse dimensions respectively. Right Thyroid Lobe: 5.95 x 2.37 x 2.6 cm, volume 16.7 mL. Parenchyma: The gland echotexture is heterogeneous. Thyroid vascularity is hypervascular. Left Thyroid Lobe: 5.84 x 2.12 x 2.23 cm, volume 14.4 mL. Parenchyma: The gland echotexture is heterogeneous. Thyroid vascularity is hypervascular. Isthmus: 1.04 cm in maximum AP dimension. Estimated total number of nodules greater than or equal to 1 cm: 2. [place] [address] nodules are described as follows: 1. Location: Right midpole. Size: 1.24 x 0.94 x 1.22 cm, volume 0.74 mL. Nodule characteristics: Composition: Solid (2). Echogenicity: Very hypoechoic Shape: Wider Margins: Lobulated (2). Echogenic Foci: None (0). ACR TI-RADS total points: 7 ACR TI-RADS category: 5 2. Location: Midpole. Size: 0.98 x 0.62 x 0.64 cm, volume 0.20 mL. Nodule characteristics: Composition: Solid (2). Echogenicity: Undetermined. Shape: Wider Margins: Smooth (0). Echogenic Foci: None (0). ACR TI-RADS total points: 3 ACR TI-RADS category: 3 3. Location: Right upper. Size: 1.25 x 1.01 x 1.22 cm, volume 0.80 mL. Nodule characteristics: Composition: Solid (2). Echogenicity: Undetermined Shape: Wider Margins: Lobulated (2). Echogenic Foci: None (0). ACR TI-RADS total points: 5 ACR TI-RADS category: 4 NODES: No lymphadenopathy is seen in the tissue surrounding the thyroid gland. US/US thyroid IMPRESSION: Very heterogeneous, enlarged and hypervascular thyroid lobes with multiple nodules in the right lobe the largest 2 nodules in the midpole and they all have high TI-RADS scoring and are suspicious. A six-month followup or fine-needle aspiration can be performed. ACR TI-RADS RECOMMENDATION REFERENCE: Ultrasound-guided fine-needle aspiration, followup ultrasound, no further follow up. * TR1 (0 point) and TR 2 (2 points): No FNA or follow up * TR3 (3 points): FNA if more than or equal to 2.5 cm in maximum dimension, followup ultrasound in 1, 3 and 5 years if 1.5 to 2.4 cm in maximum dimension. * TR4 (4-6 points): FNA if more than or equal to 1.5 cm in maximum dimension, followup ultrasound in 1, 2, 3 and 5 years if 1 to 1.4 cm in maximum dimension. * TR5 (more than or equal to 7 points): FNA if more than or equal to 1 cm in maximum dimension, followup ultrasound every year for 5 years if 0.5 to 0.9 cm in maximum dimension. * TR3, TR4 or TR5 nodules that are below the size threshold for follow up receive no follow up.
== END 2021-09-18 15:47 | disposition home or self-care (01) ==
LOC: HO.US 15:46
PROVIDERS: PCP Internal Medicine; Visit Provider Internal Medicine
DX: E66.01 Morbid (severe) obesity due to excess calories (principal); E04.9 Nontoxic goiter, unspecified; E28.2 Polycystic ovarian syndrome; E55.9 Vitamin D deficiency, unspecified; D50.0 Iron deficiency anemia secondary to blood loss (chronic); Z68.41 Body mass index [BMI] 40.0-44.9, adult
CPT/HCPCS: 76536; 97803

== ENCOUNTER → 2021-10-02 11:37 | Outpatient (BNVA) | payer OTHER, SELFPAY | PROVIDERS: PCP Internal Medicine; Referring Provider Internal Medicine; Visit Provider Physician Assistant Surgical | DX: E66.01 Morbid (severe) obesity due to excess calories (principal); Z68.41 Body mass index [BMI] 40.0-44.9, adult | CPT/HCPCS: 99212 ==

== ENCOUNTER 2021-10-23 12:02 | Outpatient (REF) | payer OTHER, SELFPAY ==
[2021-10-23 13:59] LABS: Free T4 (Free Thyroxine) 0.84 ng/dL (0.71-1.85); Thyroid Stimulating Hormone 1.35 uIU/mL (0.32-4.0)
== END 2021-10-23 12:03 | disposition home or self-care (01) ==
LOC: HO.LAB 12:02
PROVIDERS: Absent Provider Nurse Practitioner Family; PCP Internal Medicine; Visit Provider Internal Medicine
DX: R05.9 Cough, unspecified (principal)
CPT/HCPCS: 36415; 84439; 84443

== ENCOUNTER → 2021-10-24 07:59 | Outpatient (BNVA) | payer OTHER, SELFPAY | PROVIDERS: PCP Internal Medicine; Visit Provider Internal Medicine Endocrinology, Diabetes & Metabolism | DX: R79.89 Other specified abnormal findings of blood chemistry (principal) | CPT/HCPCS: 99202 ==

== ENCOUNTER → 2021-12-04 09:18 | Outpatient (BNVA) | payer OTHER, SELFPAY | PROVIDERS: PCP Internal Medicine; Referring Provider Surgery; Visit Provider Physician Assistant Surgical | DX: E66.01 Morbid (severe) obesity due to excess calories (principal); Z68.41 Body mass index [BMI] 40.0-44.9, adult | CPT/HCPCS: 99212 ==

== ENCOUNTER 2022-01-23 06:03 | Inpatient (IN) | payer OTHER, SELFPAY ==
[2022-01-10 10:49] VITALS: BMI 39.9
[2022-01-17 08:04] LABS: MANUAL DIFF FLAG NO
[2022-01-17 08:18] LABS: Basophils Percent Auto 0.4 % (0-2); Eosinophils Absolute Auto 0.1 X10*3/uL (0.0-0.4); Eosinophils Percent Auto 2.3 % (0-4); Hematocrit 43.5 % (37.0-47.0); Hemoglobin 14.2 g/dl (12.0-16.0); Imm Gran Abs Auto 0.01 X10*3/uL (0.00-0.03); Imm Gran Pct Auto 0.2 % (0.0-0.4); Lymphocytes Absolute Auto 1.1 X10*3/uL (1.2-4.9); Lymphocytes Percent Auto 23.9 % (20-40); Mean Corpuscular HGB Conc 32.6 g/dl (31.0-35.0); Mean Corpuscular Hemoglobin 28.7 pg (27.0-33.0); Mean Corpuscular Volume 88.1 fL (80.0-98.0); Mean Platelet Volume 10.7 fL (9.4-12.3); Monocytes Absolute Auto 0.3 X10*3/uL (0.1-1.2); Monocytes Percent Auto 6.4 % (2-11); Neutrophils Absolute Auto 3.2 x10*3/uL (2.0-8.3); Neutrophils Percent Auto 66.8 % (45-73); Platelet Count 219 X10*3/uL (160-400); Red Blood Count 4.94 X10*6/uL (4.20-5.50); Red Cell Distribution Width 13.4 % (11.0-16.0); White Blood Count 4.7 X10*3/uL (4.8-10.8)
[2022-01-17 08:20] LABS: Prothrombin Time 11.8 SEC (10.0-13.1)
[2022-01-17 08:22] LABS: Partial Thromboplastin Time 35.4 SEC (26.0-36.4)
[2022-01-17 08:49] LABS: Alanine Aminotransferase 15 U/L (0-31); Albumin Level 4.1 g/dL (3.5-5.0); Alkaline Phosphatase 56 U/L (39-117); Anion Gap 12 (12-20); Aspartate Amino Transferase 12 U/L (5-31); Bilirubin Total 0.3 mg/dL (0.0-1.0); Blood Urea Nitrogen 11 mg/dL (9-16); C Reactive Protein 0.37 mg/dL (< or = 0.50); Calcium 8.8 mg/dL (8.4-10.2); Carbon Dioxide 27 mmol/L (22-29); Chloride 105 mmol/L (96-108); Cholesterol 163 mg/dL; Creatinine Clr Calc Pharmacy 144.3; Estimated Average Glucose 100 mg/dL; Estimated Glomerular Filt Rate > 60; Glucose Random 100 mg/dL (60-115); HDL Cholesterol 44 mg/dL; Hemoglobin A1c % 5.1 %; LDL Cholesterol Calculated 106 mg/dl; Potassium 4.2 mmol/L (3.3-5.1); Sodium 140 mmol/L (135-145); Total Protein 6.9 g/dL (6.5-8.0); Triglycerides 68 mg/dL
[2022-01-17 09:12] LABS: Insulin 15 uU/mL (2-29); TSH reflex Free T4 2.18 uIU/mL (0.32-4.0)
--- NOTE | 2022-01-19 09:22 | HO.ANESPROP2 ---
Documented by User: Jahaira Herrera NP 01/19/22 09:23 HPI - Anesthesia Eval Consult details Narrative: 36yo F for Gastrectomy Sleeve,EGD,poss diaphragmatic hernia,poss ventral hernia,poss open, PMFSH Active Problems Active Problems: All Active Problems (Updated 01/10/22 @ 10:49 by Anamika Castillo, RN) Abnormal uterine bleeding (AUB) (Acute) Morbid obesity with BMI of 45.0-49.9, adult (Acute) BV (bacterial vaginosis) (Acute) Unsatisfactory cervical Papanicolaou smear (Acute) Family history of breast cancer in first degree relative (Acute) Encounter for annual routine gynecological examination (Acute) Breast lump on left side at 11 o'clock position (Acute) Pre-op evaluation (Acute) [id number] syndrome manifesting as chronic fatigue (Acute) Chronic cough (Acute) Depression screening (Acute) Morbid obesity (Acute) Binge-eating disorder, moderate (Acute) Physical exam (Acute) Cough (Acute) Onychocryptosis (Acute) Onychomycosis (Acute) Eczema (Acute) Candidiasis, intertrigo (Acute) Vitamin B12 deficiency (Acute) GERD (gastroesophageal reflux disease) (Acute) BMI 39.0-39.9,adult (Acute) Obesity (Acute) Low thyroid stimulating hormone (TSH) level (Acute) Hypovitaminosis D (Acute) Goiter (Acute) Thyroid disease (Acute) Primary osteoarthritis, right shoulder (Acute) Iron deficiency anemia due to chronic blood loss (Acute) Breakthrough bleeding on depo provera (Acute) Past Medical History Medical History (Updated 01/23/22 @ 07:54 by Yung Johnson MD) BMI 39.0-39.9,adult Breakthrough bleeding on depo provera GERD (gastroesophageal reflux disease) Goiter Hx of renal calculi Hypovitaminosis D Iron deficiency anemia due to chronic blood loss Low thyroid stimulating hormone (TSH) level Obesity PCOS (polycystic ovarian syndrome) Primary osteoarthritis, right shoulder Thyroid disease Family History Family History Father No problems noted. Mother Breast cancer, Onset Age: 43 Maternal Aunt Breast cancer Maternal Grandmother Breast cancer Surgical History Surgical History (Updated 01/10/22 @ 10:47 by Anamika Castillo RN) H/O shoulder surgery History of cystoscopy History of hair or hair follicle condition History of tooth extraction Hx of dilation and curettage Hx of lithotripsy Social History Social History Housing: House Are you a primary clinical manager home care to a significant other at home: No Do you presently have visiting nurse or other home services: No Alcohol intake: current Alcohol intake frequency: holidays/special occasions only Alcohol type: beer Patient Tobacco Use Status: Never used Tobacco e-Cigarette/Vaping Use: Never Used Second Hand Smoke Exposure: No Use of substances other than those prescribed or required for medical reasons: No Have you been hit, kicked, punched, or otherwise hurt by someone within the past year? 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 Current occupational exposures/hazards: No Cognitive needs: No Hearing needs: No Vision needs: No Meds Allergies Allergy/AdvReac Type Severity Reaction Status Date / Time No Known Allergies Allergy Verified 01/10/22 10:49 Exam Exam Date and Time: January 19, 2022921 Height,Weight and Vital Signs: Height 5 ft 9 in Weight 122.47 kg Pertinent Lab Results Pertinent Lab Results: Laboratory Tests 01/17/22 01/17/22 01/17/22 07:55 08:03 08:03 WBC 4.7 L RBC 4.94 Hgb 14.2 Hct 43.5 MCV 88.1 MCH 28.7 MCHC 32.6 RDW 13.4 Plt Count 219 MPV 10.7 Immature Gran % (Auto) 0.2 Neut % (Auto) 66.8 Lymph % (Auto) 23.9 [place] % (Auto) 6.4 Eos % (Auto) 2.3 Baso % (Auto) 0.4 Lymph # (Auto) 1.1 L [place] # (Auto) 0.3 Eos # (Auto) 0.1 Baso # (Auto) 0.0 Abs Immat Gran (auto) 0.01 Absolute Neuts (auto) 3.2 Absolute Nucleated RBC 0.000 Nucleated RBC % (auto) 0.0 PT 11.8 INR 1.0 APTT 35.4 Sodium Potassium Chloride Carbon Dioxide Anion Gap BUN Creatinine Estim Creat Clear Calc Estimated GFR Random Glucose Estimat Average Glucose Hemoglobin A1c % Insulin Level Calcium Total Bilirubin AST ALT Alkaline Phosphatase C-Reactive Protein Total Protein Albumin Triglycerides Cholesterol LDL Cholesterol, Calc HDL Cholesterol TSH Blood Type A Negative Antibody Screen NEGATIVE 01/17/22 01/17/22 08:03 08:03 WBC RBC Hgb Hct MCV MCH MCHC RDW Plt Count MPV Immature Gran % (Auto) Neut % (Auto) Lymph % (Auto) [place] % (Auto) Eos % (Auto) Baso % (Auto) Lymph # (Auto) [place] # (Auto) Eos # (Auto) Baso # (Auto) Abs Immat Gran (auto) Absolute Neuts (auto) Absolute Nucleated RBC Nucleated RBC % (auto) PT INR APTT Sodium 140 Potassium 4.2 Chloride 105 Carbon Dioxide 27 Anion Gap 12 BUN 11 Creatinine 0.74 Estim Creat Clear Calc 144.3 Estimated GFR > 60 Random Glucose 100 Estimat Average Glucose 100 Hemoglobin A1c % 5.1 Insulin Level 15 Calcium 8.8 D Total Bilirubin 0.3 AST 12 ALT 15 Alkaline Phosphatase 56 C-Reactive Protein 0.37 Total Protein 6.9 Albumin 4.1 Triglycerides 68 Cholesterol 163 LDL Cholesterol, Calc 106 HDL Cholesterol 44 TSH 2.18 Blood Type Antibody Screen Narrative Narrative: EKG 07/2021 Vent. Rate : 064 BPM ? ? Atrial Rate : 064 BPM ?? P-R Int : 144 ms? QRS Dur : 086 ms ? ? QT Int : 412 ms ? ? ? P-R-T Axes : 009 017 -03 degrees ?? QTc Int : 425 ms ? Normal sinus rhythm Normal ECG No previous ECGs available Assessment and Plan Assessment Anesthesia Assessment: Chart Reviewed Documented by User: Hilary Bourne MD 01/23/22 08:22 [facility] Active Problems Active Problems: All Active Problems (Updated 01/10/22 @ 10:49 by Anamika Castillo, RN) Abnormal uterine bleeding (AUB) (Acute) Morbid obesity with BMI of 45.0-49.9, adult (Acute) BV (bacterial vaginosis) (Acute) Unsatisfactory cervical Papanicolaou smear (Acute) Family history of breast cancer in first degree relative (Acute) Encounter for annual routine gynecological examination (Acute) Breast lump on left side at 11 o'clock position (Acute) Pre-op evaluation (Acute) [id number] syndrome manifesting as chronic fatigue (Acute) Chronic cough (Acute) Depression screening (Acute) Morbid obesity (Acute) Binge-eating disorder, moderate (Acute) Physical exam (Acute) Cough (Acute) Onychocryptosis (Acute) Onychomycosis (Acute) Eczema (Acute) Candidiasis, intertrigo (Acute) Vitamin B12 deficiency (Acute) GERD (gastroesophageal reflux disease) (Acute) BMI 39.0-39.9,adult (Acute) Obesity (Acute) Low thyroid stimulating hormone (TSH) level (Acute) Hypovitaminosis D (Acute) Goiter (Acute) Thyroid disease (Acute) Primary osteoarthritis, right shoulder (Acute) Iron deficiency anemia due to chronic blood loss (Acute) Breakthrough bleeding on depo provera (Acute) Denies TYLOR. Sleep study negative Past Medical History Medical History (Updated 01/23/22 @ 07:54 by Yung Johnson MD) BMI 39.0-39.9,adult Breakthrough bleeding on depo provera GERD (gastroesophageal reflux disease) Goiter Hx of renal calculi Hypovitaminosis D Iron deficiency anemia due to chronic blood loss Low thyroid stimulating hormone (TSH) level Obesity PCOS (polycystic ovarian syndrome) Primary osteoarthritis, right shoulder Thyroid disease Family History Family History Father No problems noted. Mother Breast cancer, Onset Age: 43 Maternal Aunt Breast cancer Maternal Grandmother Breast cancer Family history of problems with anesthesia: No Surgical History Surgical History (Updated 01/10/22 @ 10:47 by Anamika Castillo, RN) H/O shoulder surgery History of cystoscopy History of hair or hair follicle condition History of tooth extraction Hx of dilation and curettage Hx of lithotripsy History of Problems with Anesthesia: No Social History Social History Housing: House Are you a primary clinical manager home care to a significant other at home: No Do you presently have visiting nurse or other home services: No Alcohol intake: current Alcohol intake frequency: holidays/special occasions only Alcohol type: beer Patient Tobacco Use Status: Never used Tobacco e-Cigarette/Vaping Use: Never Used Second Hand Smoke Exposure: No Use of substances other than those prescribed or required for medical reasons: No Have you been hit, kicked, punched, or otherwise hurt by someone within the past year? 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 Current occupational exposures/hazards: No Cognitive needs: No Hearing needs: No Vision needs: No Meds Allergies Allergy/AdvReac Type Severity Reaction Status Date / Time No Known Allergies Allergy Verified 01/10/22 10:49 Exam Height,Weight and Vital Signs: Height 5 ft 9 in Weight 122.47 kg Vital Signs Temp Pulse Resp BP Pulse Ox O2 Del Method 01/23/22 06:24 97.4 F 82 16 134/88 98 Room Air Pertinent Lab Results Pertinent Lab Results: Laboratory Tests 01/17/22 01/17/22 01/17/22 07:55 08:03 08:03 WBC 4.7 L RBC 4.94 Hgb 14.2 Hct 43.5 MCV 88.1 MCH 28.7 MCHC 32.6 RDW 13.4 Plt Count 219 MPV 10.7 Immature Gran % (Auto) 0.2 Neut % (Auto) 66.8 Lymph % (Auto) 23.9 [place] % (Auto) 6.4 Eos % (Auto) 2.3 Baso % (Auto) 0.4 Lymph # (Auto) 1.1 L [place] # (Auto) 0.3 Eos # (Auto) 0.1 Baso # (Auto) 0.0 Abs Immat Gran (auto) 0.01 Absolute Neuts (auto) 3.2 Absolute Nucleated RBC 0.000 Nucleated RBC % (auto) 0.0 PT 11.8 INR 1.0 APTT 35.4 Sodium Potassium Chloride Carbon Dioxide Anion Gap BUN Creatinine Estim Creat Clear Calc Estimated GFR Random Glucose Estimat Average Glucose Hemoglobin A1c % Insulin Level Calcium Total Bilirubin AST ALT Alkaline Phosphatase C-Reactive Protein Total Protein Albumin Triglycerides Cholesterol LDL Cholesterol, Calc HDL Cholesterol TSH Blood Type A Negative Antibody Screen NEGATIVE 01/17/22 01/17/22 08:03 08:03 WBC RBC Hgb Hct MCV MCH MCHC RDW Plt Count MPV Immature Gran % (Auto) Neut % (Auto) Lymph % (Auto) [place] % (Auto) Eos % (Auto) Baso % (Auto) Lymph # (Auto) [place] # (Auto) Eos # (Auto) Baso # (Auto) Abs Immat Gran (auto) Absolute Neuts (auto) Absolute Nucleated RBC Nucleated RBC % (auto) PT INR APTT Sodium 140 Potassium 4.2 Chloride 105 Carbon Dioxide 27 Anion Gap 12 BUN 11 Creatinine 0.74 Estim Creat Clear Calc 144.3 Estimated GFR > 60 Random Glucose 100 Estimat Average Glucose 100 Hemoglobin A1c % 5.1 Insulin Level 15 Calcium 8.8 D Total Bilirubin 0.3 AST 12 ALT 15 Alkaline Phosphatase 56 C-Reactive Protein 0.37 Total Protein 6.9 Albumin 4.1 Triglycerides 68 Cholesterol 163 LDL Cholesterol, Calc 106 HDL Cholesterol 44 TSH 2.18 Blood Type Antibody Screen Laboratory Results - last 24 hr 01/23/22 01/23/22 01/23/22 06:05 06:05 06:35 Urine Test NEGATIVE COVID-19 (STEVE) Negative COVID-19 Clin Com See Note Blood Type A Negative Antibody Screen NEGATIVE Airway Mallampati Class: III (Small mouth opening) TM Dist: >3cm Neck ROM: Full Loose/Missing/Broken Teeth: Yes (Broken, missing top front) Heart: RRR Lungs: CTAB. Diminished Assessment and Plan Assessment Anesthesia Assessment: Anesthesia Plan Discussed Final Anesthetic Review Family History of Problems with Anesthesia: No History of Problems with Anesthesia: No NPO: Yes ASA Class: III Final Preanesthetic Review: No Changes in Pt Med Stat, Meds/Allgs Chart Reviewed, Consent Obtained/Reviewed and Anes Risks/Benef Reviewed Patient Risk: Intermediate Procedure Risk: Intermediate Assessment/Block/Sedation in SS: Assess/Block/Sedation- Anesthetic Plan Anesthetic Plan: GA Disposition: Standard PACU and Inp. Admit - Standard Bed
--- NOTE | 2022-01-19 22:10 | MHC.SHP ---
Pre-Procedural Eval Section A Date of Service: 01/19/22 The patient is an INPATIENT: Yes The History & Physical has been completed within 30 days and I have reviewed it.: No Section B Chief Complaint: obesity Relevant Family History (Specify if Yes): No Relevant Social History: None Present Medications: None Medical History: No relevant PMH History of Previous Operations: No relevant previous surgery Allergies: Allergies Allergy/AdvReac Type Severity Reaction Status Date / Time No Known Allergies Allergy Verified 01/10/22 10:49 Review of Systems Sugical H&P ROS: Negative: Constitution, Cardiovascular, Respiratory, Neurological, Psychiatric, Hem-Onc, Allergic/Immunologic, Gastrointestinal, Genitourinary, Musculoskeletal, Integumentary, Endocrine and Eyes/Ears/Nose/Throat Exam Surgical H&P Exam: Normal: HEENT, Normal: Heart, Normal: Lungs, Normal: Extremities, Normal: Abdomen, Normal: Skin and Normal: Neurological Plan Diagnosis/Plan: Unchanged I have reviewed the history and physical and performed a pertinent physical examination on my patient. No changes have occurred unless specified.
[2022-01-23] VITALS (15 sets, daily range): BP systolic 134–150; BP diastolic 78–93; PULSE 67–87; RESP 15–18; TEMP 36.1–36.6; O2SAT 94–100; BMI 38.7
[2022-01-23 06:24] LABS: UPreg QC Valid YES; Urine Pregnancy NEGATIVE (NEGATIVE)
[2022-01-23 06:37] LABS: COVID-19 Test Negative (Negative)
--- NOTE | 2022-01-23 07:08 | PHA.MEDREC ---
Pharmacy Consult ? Medication Reconciliation Pharmacy has completed the medication reconciliation. Reviewed med rec done by nursing
[2022-01-23] MEDS: Lactated Ringers 1,000 ML 999 ML IV (07:18)
[2022-01-23] MEDS: Lactated Ringers 1,000 ML 100 ML IVCONT ×3 (07:20→19:19)
--- NOTE | 2022-01-23 07:50 | P.BOP_ITS ---
Brief Operative Note Date of Service: 01/23/22 Pre-op diagnosis: Severe obesity with comorbidities (see below) Post-op diagnosis: same Procedure: INITIAL PATIENT BMI ON PRESENTATION AT OUR OFFICE: 47.1 kg/m2 LAST BMI BEFORE SURGERY: 39.4 kg/m2 COMORBIDITIES: GERD, liver steatosis, liver fibrosis ?The patient presented to the Weight Management Program with significant obesity that was negatively impacting the patient's comorbidities as listed above.? The program is a phased program with a special focus on preoperative medical weight management to promote substantial weight loss and prepare the patients for the second phase of the program: bariatric surgery. The patient participated in an intensive weekly lifestyle ?intervention and exercise program during which the patient ?has lost between the initial office visit and the last preoperative visit 34.3lbs, or 11.41% of initial actual body weight. It was deemed appropriate for the patient to now have bariatric surgery. In light of the current Covid-19 pandemic and the well documented strong association of obesity and increased risk of worse outcomes if infected with Covid-19 (REFERENCES: https://pubmed.ncbi.nlm.nih.gov/83143494/ ,? https://pu ed.ncbi.nlm.nih.gov/28585825/ ), any delay in undergoing bariatric surgery may lead to the patient's worsening health condition and increased?risk of more severe Covid-19 disease if infected. In addition a recent?study from [facility] published in [employer] [facility] on 05/15/2021 ([email or web address]) found that, among patients with obesity, substantial weight loss achieved with surgery was associated with improved outcomes of COVID-19 infection. The findings suggest that obesity can be a modifiable risk factor for the severity of COVID-19 infection. In addition, the patient met the BMI-criteria for bariatric surgery based on the BMI on initial presentation. The patient should not be penalized for achieving such weight loss because ?it is not sustainable long-term without surgical intervention and it was achieved in preparation for bariatric surgery ?under my direction and based on my published research ([email or web address]).[email or web address] and? https://www.soard.org/article/[email or web address](10)06917-X/pdf ) ?that a 10% preoperative weight loss improves long-term weight loss after surgery and reduces perioperative complications.? Insurance carriers such as [facility] have endorsed my recommendations ?and have included in their policies criteria to include a 10% preoperative weight loss requirement. PROCEDURE: Esophago-gastroscopy, laparoscopic sleeve gastrectomy and laparoscopic gastropexy INDICATIONS: This is a 36 year-old female who was electively scheduled for laparoscopic, possibly open sleeve gastrectomy. The risks and complications of the procedure were discussed with the patient in advance, particularly the possibility of ; pulmonary embolism; staple line leak; bleeding; GERD; cardiac, pulmonary, or renal complications; as well as long-term problems such as insufficient weight loss, vitamin deficiency, strictures, or ulcers. The patient understood all the risks, and was in agreement to proceed with surgery. DESCRIPTION OF PROCEDURE: After informed consent was obtained from the patient, the patient was given preoperative antibiotics, and was transferred to the operating room. After successful induction of general anesthesia, pneumatic compression devices were placed on both lower extremities. An upper endoscopy was performed next. The oropharynx and esophagus appeared to be within normal limits. There was no diaphragmatic hernia present consistent with the findings of the preoperative upper GI. The stomach was entered. Then after all fluid and air were suctioned and the stomach was fully decompressed, the scope was withdrawn and secured in the mid esophagus. The patient was then prepped and draped in the usual sterile manner, and abdominal access was established at the right upper quadrant with the Bro technique. A 12 mm blunt port was inserted, and the abdomen was insufflated with CO2 to a pressure of 15 mmHg. Under direct visualization, additional ports were placed, specifically two 5 mm Versi-step ports to the left upper quadrant, and a 5 mm Versi-Step port to the right upper quadrant. 1% lidocaine plain was used to infiltrate all port sites as well as all fascia defects. Following that, the patient was placed in a steep reverse Trendelenburg position. An additional 5 mm port was placed to the right flank for the Mediflex retractor that was used to retract the left lobe of the liver. The gastro-esophageal fat pad was opened with the ultrasonic device (Thunderbeat, Olympus) and the anterior esophagus and hiatus were exposed. The angle of His was opened with the ultrasonic device the fundus of the stomach from any diaphragmatic and splenic attachments. I then opened the gastrocolic ligament between the transverse colon and the greater curvature of the stomach with the ultrasonic device to enter the lesser sac and facilitate the ligation of the short gastric vessels. I started at a mid-point along the greater curvature and using the Thunderbeat, all short gastric vessels were divided all the way to the angle of His until the left deon was completely dissected at its entirety. I then divided the gastro-colic ligament distally to a distance of about 3-4 cm proximal to the pylorus. The stomach was then divided transversely with one Endo LIUDMILA-45 purple and four LIUDMILA-60 articulating orange loads using the AEON stapler and loads. Every effort was made that the gastric sleeve had a tubular shape and an even caliber throughout. Once the sleeve resection was completed, the staple line of the gastric sleeve was reinforced with Hemoclips. The resected stomach was retrieved without difficulty from the Bro port. A gastropexy was then performed in order to prevent postoperative GERD and partial gastric volvulus. Several interrupted 2.0 Surgidac sutures were placed between the sleeve's staple line and the previously divided greater omentum and gastro-colic ligament using the Endo-Stitch device. ?An upper endoscopy was performed. There was no narrowing at the GE junction. The scope was easily advanced all the way to the pylorus which was clearly visualized. There was no narrowing anywhere and the sleeve's caliber was even throughout. The sleeve's staple line was inspected and there was no evidence of ischemia, bleeding or dehiscence. At that point the gastroscope was withdrawn from the patient?s mouth while we were decompressing the bowel and the stomach from any remaining air. I looked into the lesser sac to see how the sleeve was situating and it was situ ating well. There was no bleeding from the staple line, spleen, or short gastric vessels. The Mediflex retractor was removed, and the undersurface of the liver was inspected and there was no bleeding. The patient was placed in supine position. I closed the fascial defect of the 12 mm port site with a figure of eight #1 Polysorb suture. Then 30cc of Ropivacaine plain with 10 mg of Dexamethasone were used to infiltrate the fascial closure as well as all skin incisions. A total of 7ml of Zynrelef was applied in the Bro wound. At this point, the abdomen was deflated, all ports were removed under direct vision, and no bleeding was noted from any of the port sites. The skin incisions were irrigated with saline and were closed with 4-0 absorbable monofilament sutures. Steri-Strips and OpSites were used to cover all incisions. The patient was extubated and was transferred in stable condition to the recovery room for further care. I was present and performed all villar parts of the procedure. 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 There were no residents to assist with this case. Alen Johnson MD, PhD, FACS Surgeon: Yung Johnson MD Anesthesia: GETA, local and other (TAP block and 7ml of Zynrelef) Was an Laboratory Equipment Installer used for this Procedure?: No Laboratory Equipment Installer: Merlyn Cortez Estimated blood loss (mL): 10 IV fluids (mL): 2,000 Urine output (mL): 0 (No Santana to record) Pathology: other (Stomach) Condition: stable Disposition: PACU
--- NOTE | 2022-01-23 07:53 | MHC.SHP ---
Pre-Procedural Eval Section A Date of Service: 01/23/22 Section B Chief Complaint: obesity Allergies: Allergies Allergy/AdvReac Type Severity Reaction Status Date / Time No Known Allergies Allergy Verified 01/10/22 10:49 Plan I have reviewed the history and physical and performed a pertinent physical examination on my patient. No changes have occurred unless specified.
--- NOTE | 2022-01-23 07:54 | PM.PNGS ---
Subjective Subjective Date of Service: 01/24/22 Interval history: Patient has mild incisional pain, but was able to ambulate and use the incentive spirometer. She is tolerating phase 1 bariatric diet Physical Exam Vital Signs: Vital Signs: Last Vital Signs Temp 97.4 F 01/23/22 06:24 Pulse 82 01/23/22 06:24 Resp 16 01/23/22 06:24 BP 134/88 01/23/22 06:24 Pulse Ox 98 01/23/22 06:24 O2 Del Method 01/23/22 06:24 BMI result Body Mass Index 38.7 GI: Inspection: Yes normal to inspection, Yes incision (clean, dry and intact) and Yes obesity Extrem: Right lower extremity: normal to inspection (no calf tenderness) Left lower extremity: normal to inspection (no calf tenderness) Objective Data Active Medications Lactated Ringer's (Lr) 1,000 mls @ 100 mls/hr IVCONT .Q10H DIAMANTE Last Admin: 01/23/22 07:20 Dose: 100 mls/hr Documented By: SUKUMAR Lactated Ringer's (Lr) 1,000 mls @ 999 mls/hr IV .Q1H1M DIAMANTE Stop: 01/23/22 08:15 Last Admin: 01/23/22 07:18 Dose: 999 mls/hr Documented By: SUKUMAR Labs CBC & Chem 7: 01/24/22 05:45 01/24/22 05:45 Labs: Laboratory Results - last 24 hr 01/23/22 01/23/22 01/23/22 06:05 06:05 06:35 Urine Test NEGATIVE COVID-19 (STEVE) Negative COVID-19 Clin Com See Note Blood Type A Negative Antibody Screen NEGATIVE Procedures Date of Service Date of Service: 01/24/22 Progress Note: A&P Assessment and plan (1) Obesity: Status: Acute Assessment and Plan: s/p laparoscopic sleeve gastrectomy and gastropexy Doing well Check am labs. If OK, will discharge home? (2) BMI 39.0-39.9,adult: Status: Acute (3) Goiter: Status: Acute (4) Primary osteoarthritis, right shoulder: Status: Acute (5) GERD (gastroesophageal reflux disease): Status: Acute (6) Steatosis, liver: Status: Acute (7) Liver fibrosis: Status: Acute (8) S/P laparoscopic sleeve gastrectomy: Status: Acute Time Spent With Patient Time: Total time spent is greater than 50% in coordination of care (as documented) at patient's floor/unit and/or counseling patient: Quality Stroke Does the patient have a stroke diagnosis?: No VTE Prior VTE?: No VTE Risk Level:: Surgical - moderate VTE Device Contraindication: N/A - Device Ordered VTE Drug Contraindication: Treatment Not Indicated
[2022-01-23] MEDS: ceFAZolin Sodium/Dextrose,Iso 2 GM/50 ML PIGGYBACK IV ×2 (08:00→13:06)
--- NOTE | 2022-01-23 09:57 | PM.DS ---
DS: Providers Provider Date of Service: 01/24/22 Date of admission: 01/23/22 06:03 Primary care physician: Marianna Garrido MD DS: Diagnosis Discharge Diagnosis (1) Obesity: Status: Acute (2) BMI 39.0-39.9,adult: Status: Acute (3) Goiter: Status: Acute (4) Primary osteoarthritis, right shoulder: Status: Acute (5) GERD (gastroesophageal reflux disease): Status: Acute (6) Steatosis, liver: Status: Acute (7) Liver fibrosis: Status: Acute DS: Summary Hospital Course Hospital Course: ADMITTING DIAGNOSIS: morbid obesity, goiter, GERD DISCHARGE DIAGNOSIS: same, s/p laparoscopic sleeve gastrectomy PAST SURGICAL HISTORY: lithotripsy PROCEDURE: upper endoscopy, laparoscopic sleeve gastrectomy DISCHARGE SUMMARY: History of Present Illness: The patient is a 36 year-old woman with a BMI of 44.4 kg/m2 and associated co-morbidities as described above. The patient had extensive work-up,lost 31.3 lbs preoperatively and was electively scheduled for laparoscopic, possible open sleeve gastrectomy and gastropexy. Risks and complications of the surgery were discussed with the patient in advance, particularly the possibility of , pulmonary embolism, anastomotic leak, bleeding, bowel injury, GERD, cardiac, renal or pulmonary complications. The patient understood all the risks and was in agreement with the surgical plan. Hospital Course: The patient underwent an uneventful laparoscopic sleeve gastrectomy with gastropexy and repair of diaphragmatic hernia on the day of admission. Postoperatively, the patient was transferred to the surgical floor. The patient received IV Acetaminophen and IV dilaudid for pain control. Patient was started on bariatric phase 1 diet POD #0. On postoperative day one, the patient was feeling well without nausea, vomiting, fevers, or tachycardia. The patient had some mild incisional pain and the abdomen was soft. On the morning of postoperative day one, the patient was continued on 1 ounce of water or ice every half hour. During the day, the patient did fairly well, having some incisional pain, but able to ambulate adequately and to tolerate liquids well. Since the patient is doing well, we decided that the patient was ready to be discharged. The patient was given instructions to follow-up with me next week and to call my office for any fever over 101, persistent abdominal pain, nausea, vomiting, GERD, symptoms of DVT such as calf tenderness, or leg swelling, or pulmonary embolism such as chest pain or shortness of breath. The patient was also instructed to drink 40-60 ounces of liquids per day using the 1-ounce cups. The patient had been given prescriptions for Tylenol for pain, Zofran prn for nausea, and pantoprazole and carafate previously. The patient was encouraged to ambulate and use the incentive spirometer. The patient was allowed to shower, but no baths, and encouraged to stay active at home. All of these instructions were given to the patient personally. All questions were answered and the patient understood all instructions, the instructions were also given to the patient in print. Time Spent with Patient Time attestation: Total time spent providing and/or coordinating discharge services: Discharge coordination time: Less than 30 minutes Quality: Safe Use of Opioids Does Pt have an Active Cancer Diagnosis on the Problem List?: No Quality: Stroke Does the patient have a stroke diagnosis?: No Physical Exam Vital Signs: Vital Signs: Last Vital Signs Temp 97.4 F 01/23/22 06:24 Pulse 82 01/23/22 06:24 Resp 16 01/23/22 06:24 BP 134/88 01/23/22 06:24 Pulse Ox 98 01/23/22 06:24 O2 Del Method 01/23/22 06:24 BMI result Body Mass Index 38.7 DS: Data Data Completed and Pending Pending studies at discharge: Pending at discharge 01/23/22 09:26 Surgical [PTH] Routine Labs on day of discharge: Laboratory Results - last 24 hr 01/23/22 01/23/22 01/23/22 06:05 06:05 06:35 Urine Test NEGATIVE COVID-19 (STEVE) Negative COVID-19 Clin Com See Note Blood Type A Negative Antibody Screen NEGATIVE Discharge Plan Discharge Anticipated Discharge Date/Time: 01/24/22 10:54 Patient Disposition: Home, Self-Care Discharge Diagnosis: s/p sleeve gastrectomy Referrals: Marianna Griffin MD [Primary Care Provider] - 1 Week Discharge Medications: Continued hydrocortisone 2.5 % cream 1 appl topical BID PRN (Reason: itching) Qty: 30 0RF Rx Instructions: eczema nystatin 100,000 unit/gram powder 1 appl topical BID Qty: 60 0RF ketoconazole 2 % cream 1 appl topical BID Qty: 60 0RF Rx Instructions: under breasts pantoprazole 40 mg tablet,delayed release (DR/EC) 40 mg PO DAILY Qty: 30 2RF sucralfate 100 mg/mL suspension 10 ml PO BID Qty: 400 2RF ondansetron HCl 4 mg tablet 4 mg PO Q12H Qty: 30 0RF Discontinued calcitriol 0.5 mcg capsule 0.5 mcg PO DAILY 90 Days Qty: 90 0RF thiamine HCl (vitamin B1) 100 mg tablet 100 mg PO DAILY Qty: 30 2RF vitamin A palmitate 10,000 unit capsule 10,000 unit PO DAILY Qty: 30 2RF polyethylene glycol 3350 [Miralax] 17 gram powder in packet 17 g PO DAILY Qty: 14 0RF Rx Instructions: Mix each packet with 8oz of water and do 7 packets on 01/15/22 and another 7 packets on 01/16/22 mecobalamin (vitamin B12) 1,000 mcg tablet,disintegrating 1,000 mcg sublingual DAILY Qty: 30 2RF Rx Instructions: place tablet under tongue and allow to dissolve for at least30 secs before swallowing Discharge Orders: Discharge Order (Routine); Ordered 01/24/22 Ordered By: Yung Johnson Activity on Discharge: No heavy lifting Stand Alone Forms: Patient Portal Discharge page Care Plan Goals: weight loss Health Concerns: obesity Plan of Treatment: No tub baths, sex or returning to work until discussed at first post op appointment. No exercise, alcohol, tobacco or illegal drug use. Continue to use incentive spirometer hourly while awake. Walk in home for 5- 10 minutes every 2 hours during the first week. Continue phase 1 diet today and start phase 2 diet tomorrow morning. Follow all instructions in the bariatric handbook and call with any questions. 1. Please call your doctor or come back to the emergency room should any new symptoms arise. 2. You will receive a courtesy call from [facility] 24-48 hours after discharge. 3. Activity: abstain from alcohol, practice limited stair climbing, no bending, no driving, no exercise, no illicit substances, no lifting, no sex, no tub bath, no work. 4. Diet: continue as discussed with bariatric team.. 5. Dressing Change/Wound Care: Do not change or remove surgical dressings unless they are wet or soiled. 6. Call your doctor if: - Your temperature exceeds 101.5 F - You experience excessive pain or swelling - You have an unexpected reaction to medication - You have excessive bleeding - You experience continued vomiting/nausea - Your incision begins to separate - Your incision shows signs of infection such as increased redness, swelling, excessive pain, heat, or drainage (light blood or clear fluid is normal) 7. General instructions: No lifting greater than 5 lbs for the next 4 weeks[address] driving within 24 hours of taking narcotic pain medications. If you do not move your bowels in the next 2 days, please take milk of magnesia over the counter. Please follow the post op diet and do not advance your diet until you are seen in the office in about 2 weeks. Please walk around your home every hour or two to prevent blood clots from forming in your legs. You do not need to wake from sleeping to walk. Please sleep in a bed or couch to prevent kinking at the hips and knees. Please take your incentive spirometer (your lung chronometer assembler and adjuster) home with you and use it for the next few days to prevent pneumonias. You may shower, no hot tubs, baths or swimming pools. Please call the office with any questions or concerns such as increasing abdominal pain, fever, chills, shortness of breath, chest pain, leg pain or swelling, or redness or drainage from your incisions. Do not hesitate to contact the office with any questions at . The patient's medical history has been reviewed and they are considered low risk for post op DVT and therefore DVT prophylaxis is not considered necessary. Travel after surgery was reviewed. The patient has not disclosed any travel plans during the first 30 days after surgery and they have been advised that within the first 30 days after surgery any bus, plane, train or car travel over 2 hours in duration is contraindicated due to the possibility of developing blood clots from immobility. Any travel, needs to include periods of ambulation of 10 minutes in duration every 2 hours. The patient was instructed to discuss any plans for travel during this period with their bariatric surgeon. Assessment: stable, s/p sleeve gastrectomy Discharge Date/Time: 01/24/22 09:36
[2022-01-23] MEDS: HYDROmorphone HCl 0.5 MG/0.5 ML SYRINGE 0.25 MG IVPUSH ×2 (10:05→10:15)
[2022-01-23] MEDS: Famotidine/PF 20 MG/2 ML VIAL IVPUSH ×2 (10:16→19:22)
[2022-01-23 10:18] LABS: Hematocrit 44.8 % (37.0-47.0); Hemoglobin 14.6 g/dl (12.0-16.0)
[2022-01-23 11:00] LABS: Anion Gap 22 (12-20); Blood Urea Nitrogen 12 mg/dL (9-16); Calcium 8.7 mg/dL (8.4-10.2); Carbon Dioxide 14 mmol/L (22-29); Chloride 106 mmol/L (96-108); Creatinine Clr Calc Pharmacy 119.3; Estimated Glomerular Filt Rate > 60; Glucose Random 102 mg/dL (60-115); Potassium 4.8 mmol/L (3.3-5.1); Sodium 137 mmol/L (135-145)
[2022-01-23] MEDS: ondansetron HCL 4 MG/2 ML VIAL IVPUSH (19:22)
[2022-01-23] MEDS: 0.9 % Sodium Chloride Flush 3 ML SYRINGE IVFLUSH (19:22)
[2022-01-23] MEDS: Clotrimazole 1 % Cream 15 GM TUBE 1 APPL TOPICAL (19:22)
[2022-01-23] MEDS: Hydrocortisone 1 % Cream 28.35 GM TUBE 1 APPL TOPICAL (19:22)
[2022-01-24 03:38] VITALS: BP 142/81; PULSE 67; RESP 19; TEMP 36.7; O2SAT 92
[2022-01-24] MEDS: Lactated Ringers 1,000 ML 100 ML IVCONT (04:31)
[2022-01-24] MEDS: ondansetron HCL 4 MG/2 ML VIAL IVPUSH (04:31)
[2022-01-24 06:34] LABS: MANUAL DIFF FLAG NO
[2022-01-24 06:44] LABS: Basophils Percent Auto 0.2 % (0-2); Eosinophils Percent Auto 0.1 % (0-4); Hematocrit 38.7 % (37.0-47.0); Hemoglobin 12.9 g/dl (12.0-16.0); Imm Gran Abs Auto 0.03 X10*3/uL (0.00-0.03); Imm Gran Pct Auto 0.4 % (0.0-0.4); Lymphocytes Percent Auto 11.7 % (20-40); Mean Corpuscular HGB Conc 33.3 g/dl (31.0-35.0); Mean Corpuscular Hemoglobin 29.1 pg (27.0-33.0); Mean Corpuscular Volume 87.4 fL (80.0-98.0); Mean Platelet Volume 11.3 fL (9.4-12.3); Monocytes Absolute Auto 0.7 X10*3/uL (0.1-1.2); Monocytes Percent Auto 7.6 % (2-11); Neutrophils Absolute Auto 6.8 x10*3/uL (2.0-8.3); Platelet Count 222 X10*3/uL (160-400); Red Blood Count 4.43 X10*6/uL (4.20-5.50); Red Cell Distribution Width 13.3 % (11.0-16.0); White Blood Count 8.6 X10*3/uL (4.8-10.8)
[2022-01-24 06:57] LABS: Anion Gap 18 (12-20); Blood Urea Nitrogen 10 mg/dL (9-16); Calcium 8.4 mg/dL (8.4-10.2); Carbon Dioxide 18 mmol/L (22-29); Chloride 106 mmol/L (96-108); Creatinine Clr Calc Pharmacy 143.9; Estimated Glomerular Filt Rate > 60; Glucose Random 83 mg/dL (60-115); Potassium 4.3 mmol/L (3.3-5.1); Sodium 138 mmol/L (135-145)
[2022-01-24] MEDS: Famotidine/PF 20 MG/2 ML VIAL IVPUSH (07:27)
[2022-01-24 07:47] VITALS: BP 164/93; PULSE 74; RESP 18; TEMP 36.7; O2SAT 97
--- NOTE | 2022-01-24 08:18 | HO.POSTANES ---
Post Anesthesia Evaluation Post Anesthesia Evaluation Vital Signs: Vital Signs Temp Pulse Resp BP Pulse Ox O2 Del Method 01/24/22 08:15 Room Air 01/24/22 07:47 98.1 F 74 18 164/93 H 97 Room Air 01/24/22 03:38 98.0 F 67 19 142/81 H 92 Room Air 01/23/22 23:30 97.8 F 84 18 142/82 H 94 Room Air Anesthesia: Nerve Block and General Endotracheal-GETA Mental Status: Awake Pain Control: Satisfactory Nausea/Vomiting: None Hydration: Adequate Anesthesia-Related Issues: No Anes. Related Issues
--- NOTE | 2022-01-24 09:09 | MHC.CM.PN ---
EMR REVIEWED, PT ADMITTED S/P LAP SLEEVE GASTRECTOMY, CM MET W/PT WHO IS A&O, PT DENIES USE OF DME AND HOME SERVICES, PT VERIFIES PCP IS EMILY MOONEY, ABDULKADIR X3 AND PT REPORTS HER MOTHER MEGAN IRAHETA [phone] IS HER HCP, COPY REQUESTED. D/C PLAN: HOME TODAY SELF-CARE W/FAMILY FOR TRANSPORT
== END 2022-01-24 09:36 | disposition home or self-care (01) | DRG 403 ==
LOC: HO.SSSA 09:57 → HO.S3 11:11
PROVIDERS: Nurse Practitioner; Physician Assistant; Physician Assistant Surgical; Admitting Provider Surgery; PCP Internal Medicine; Visit Provider Surgery
PROC: 0DB64Z3 Excision of Stomach, Percutaneous Endoscopic Approach, Vertical (ICD-10-PCS; CPT 43845; principal; 2022-01-23 07:30)
DX: E66.01 Morbid (severe) obesity due to excess calories (principal); K74.00 Hepatic fibrosis, unspecified; E28.2 Polycystic ovarian syndrome; Z68.39 Body mass index [BMI] 39.0-39.9, adult; K76.0 Fatty (change of) liver, not elsewhere classified; K21.9 Gastro-esophageal reflux disease without esophagitis; Z20.822 Contact with and (suspected) exposure to COVID-19; Z97.5 Presence of (intrauterine) contraceptive device; Z87.442 Personal history of urinary calculi; Z79.899 Other long term (current) drug therapy
CPT/HCPCS: 36415; 80048; 80053; 80061; 81025; 83036; 83525; 84443; 85014; 85018; 85025; 85610; 85730; 86140; 86850; 86900; 86901; 87635; 88307; 88342; A4649; C9088; J0131; J0690; J1100; J1170; J2250; J2370; J2405; J2550; J2765; J2795; J3010

== ENCOUNTER 2022-04-23 10:09 | Outpatient (REF) | payer OTHER, SELFPAY ==
--- NOTE | ~2022-04-23 | XR_ITS ---
EXAMINATION: XR HIP, BILATERAL CLINICAL INFORMATION: Bilateral hip pain. COMPARISON: None. TECHNIQUE: 2 views of each hip. FINDINGS: 2 views of the left hip do not demonstrate any evidence of acute fracture or dislocation. Hip joint space is maintained. No femoral head collapse is seen. Mild spurring greater trochanter. There are a few sclerotic lesions seen about the femoral neck and left sacrum without destructive bony findings. There is no evidence of acute fracture or dislocation of the right hip. There is mild spurring seen about the greater trochanter. Small bone islands are seen about the right femoral head and intertrochanteric region. IUD in place. Hip joint spaces maintained. XR/XR hip RT min 2V IMPRESSION: No significant abnormality of the right hip or left hip identified. Nondestructive sclerotic lesions as described likely representing bone islands.
--- NOTE | ~2022-04-23 | XR_ITS ---
EXAMINATION: XR HIP, BILATERAL CLINICAL INFORMATION: Bilateral hip pain. COMPARISON: None. TECHNIQUE: 2 views of each hip. FINDINGS: 2 views of the left hip do not demonstrate any evidence of acute fracture or dislocation. Hip joint space is maintained. No femoral head collapse is seen. Mild spurring greater trochanter. There are a few sclerotic lesions seen about the femoral neck and left sacrum without destructive bony findings. There is no evidence of acute fracture or dislocation of the right hip. There is mild spurring seen about the greater trochanter. Small bone islands are seen about the right femoral head and intertrochanteric region. IUD in place. Hip joint spaces maintained. XR/XR hip LT min 2V IMPRESSION: No significant abnormality of the right hip or left hip identified. Nondestructive sclerotic lesions as described likely representing bone islands.
--- NOTE | ~2022-04-23 | MM_ITS ---
EXAMINATION: MM SCREENING DIGITAL BREAST TOMOSYNTHESIS, BILATERAL CLINICAL INFORMATION: 36-year-old for screening mammography. Family history breast cancer (mother, age 43; grandmothers, aunts, cousin). Tyrer-Cuzick Model is 34%. COMPARISON: Mammography: 04/14/2021 (baseline) TECHNIQUE: Digital breast tomosynthesis is performed in both the craniocaudal and mediolateral oblique views along with computer-aided detection (CAD). Synthesized 2D images are generated from the tomosynthesis. FINDINGS: There are scattered areas of fibroglandular density (ACR BI-RADS breast composition Category b). There are no significant masses, abnormal calcifications, or other abnormalities. Parenchymal no architectural abnormality or significant changes from prior study. The axilla and skin contours are unremarkable. MM/MM tomosynthesis screening BI IMPRESSION: No mammographic evidence of malignancy. ASSESSMENT: BI-RADS 1: Negative RECOMMENDATION: -Routine annual mammography screening. -The lifetime risk of breast cancer based on the Tyrer-Cuzick Model is 34%. Additional annual adjunct screening with breast MRI may be of benefit in women with a risk score of 20% or greater. This patient's information was entered into a reminder system with a target due date for their next mammogram.
[2022-04-23 11:43] LABS: Free T4 (Free Thyroxine) 1.01 ng/dL (0.71-1.85)
[2022-04-25 09:47] LABS: Thyroglobulin Antibodies 117 IU/mL (< or = 1); Thyroid Peroxidase Antibodies 136 IU/mL (<9)
== END 2022-04-23 10:10 | disposition home or self-care (01) ==
LOC: HO.MAMMO 10:09
PROVIDERS: PCP Internal Medicine; Visit Provider Internal Medicine
DX: E04.2 Nontoxic multinodular goiter (principal); M25.552 Pain in left hip; M25.551 Pain in right hip; Z12.31 Encounter for screening mammogram for malignant neoplasm of breast
CPT/HCPCS: 36415; 73502; 77063; 77067; 84439; 84443; 86376; 86800

== ENCOUNTER 2022-05-10 17:20 | Outpatient (REF) | payer OTHER, SELFPAY ==
--- NOTE | ~2022-05-10 | XR_ITS ---
EXAMINATION: XR PELVIS CLINICAL INFORMATION: Hip pain COMPARISON: Radiographs bilateral hips 04/23/2022. TECHNIQUE: AP view of the pelvis. FINDINGS: Normal bony mineralization. No fracture or destructive process. The SI joints and pubis show no joint narrowing or erosive change or diastases. The hips show no joint narrowing or erosive change. There is incidental bone island again suggested left intertrochanteric region and left atrium. There is a subtle 5 mm mineralization adjacent to the superior aspect left hip greater trochanter which may represent calcific tendinosis tendon insertion. Bowel gas unremarkable. There is an IUD overlying the central pelvis just right of midline. XR/XR pelvis 1-2V IMPRESSION: -Subtle 5 mm mineralization adjacent to superior aspect left hip greater trochanter which may represent calcific tendinosis tendon insertion. -No joint narrowing or erosive change.
== END 2022-05-10 17:21 | disposition home or self-care (01) ==
LOC: HO.HOSX 17:20
PROVIDERS: Visit Provider Physician Assistant
DX: M54.50 Low back pain, unspecified (principal); M54.16 Radiculopathy, lumbar region; M25.551 Pain in right hip; M25.552 Pain in left hip
CPT/HCPCS: 72170; 99202

== ENCOUNTER 2022-05-30 14:34 | Outpatient (REF) | payer OTHER, SELFPAY ==
--- NOTE | ~2022-05-30 | US_ITS ---
EXAMINATION: US THYROID CLINICAL INFORMATION: Nontoxic multinodular goiter. COMPARISON: Ultrasound thyroid 09/18/2021. TECHNIQUE: Linear transducer grayscale and color Doppler examination with attention to the region of the thyroid. FINDINGS: SIZE: Measurements of the thyroid lobes and nodules are given in sagittal, anteroposterior and transverse dimensions respectively. Right Thyroid Lobe: 6.1 x 1.9 x 2.3 cm, volume 14.0 mL. Previously 6.0 x 2.4 x 2.3 cm, volume 16.7 mL. Parenchyma: The gland echotexture is heterogeneous. Thyroid vascularity is increased. Left Thyroid Lobe: 5.5 x 1.8 x 1.8 cm, volume 9.3 mL. Previously 5.8 x 2.1 x 2.3 cm, volume 14.4 mL. Parenchyma: The gland echotexture is heterogeneous. Thyroid vascularity is increased. Isthmus: 0.9 cm in maximum AP dimension. Previously 1.0 cm. Estimated total number of nodules greater than or equal to 1 cm: 1. [employer] nodules are described as follows: 1. Location: Right mid. Size: 1.2 x 0.7 x 1.1 cm, volume 0.5 mL. Previously: 1.2 x 1.0 x 1.2 cm, volume 0.7 mL. Nodule characteristics: Composition: Solid (2). Echogenicity: Very hypoechoic (3). Shape: Not taller than wide (0). Margins: Irregular (2). Echogenic Foci: None (0). ACR TI-RADS total points: 7. Previous: 7. ACR TI-RADS category: 5. Previous: 5. Significant change in size (>/= 20% in 2 dimensions and minimal increase of 2 mm or 50% or greater increase in volume): None. Change in features: None. Change in ACR TI-RADS risk category: No change. 2. Location: Right mid. Size: 0.6 x 0.5 x 0.6 cm, volume 0.1 mL. Previously: 1.0 x 0.6 x 0.6 cm, volume 0.2 mL. Nodule characteristics: Composition: Solid (2). Echogenicity: Hyperechoic (1). Shape: Not taller than wide (0). Margins: Smooth (0). Echogenic Foci: None (0). ACR TI-RADS total points: 3. Previous: 3. ACR TI-RADS category: 3. Previous: 3. Significant change in size (>/= 20% in 2 dimensions and minimal increase of 2 mm or 50% or greater increase in volume): None. Change in features: None. Change in ACR TI-RADS risk category: No change. 3. Location: Right superior. Size: 0.7 x 0.9 x 0.9 cm, volume 0.3 mL. Previously: 1.3 x 1.0 x 1.2 cm, volume 0.8 mL. Nodule characteristics: Composition: Solid (2). Echogenicity: Hyperechoic (1). Shape: Not taller than wide (0). Margins: Lobulated (2). Echogenic Foci: None (0). ACR TI-RADS total points: 5. Previous: 5. ACR TI-RADS category: 4. Previous: 4. Significant change in size (>/= 20% in 2 dimensions and minimal increase of 2 mm or 50% or greater increase in volume): Minimal. Change in features: None. Change in ACR TI-RADS risk category: No change. NODES: No lymphadenopathy is seen in the tissue surrounding the thyroid gland. US/US thyroid IMPRESSION: Enlarged heterogeneous gland with increased vascularity. Multiple thyroid nodules are essentially stable in size and echotexture as well as TI-RADS category. ACR TI-RADS RECOMMENDATION REFERENCE: Ultrasound-guided fine-needle aspiration, followup ultrasound, no further follow up. * TR1 (0 point) and TR 2 (2 points): No FNA or follow up. * TR3 (3 points): FNA if more than or equal to 2.5 cm in maximum dimension, followup ultrasound in 1, 3 and 5 years if 1.5 to 2.4 cm in maximum dimension. * TR4 (4-6 points): FNA if more than or equal to 1.5 cm in maximum dimension, followup ultrasound in 1, 2, 3 and 5 years if 1 to 1.4 cm in maximum dimension. * TR5 (more than or equal to 7 points): FNA if more than or equal to 1 cm in maximum dimension, followup ultrasound every year for 5 years if 0.5 to 0.9 cm in maximum dimension. * TR3, TR4 or TR5 nodules that are below the size threshold for followup receive no follow up.
== END 2022-05-30 14:35 | disposition home or self-care (01) ==
LOC: HO.US 14:34
PROVIDERS: PCP Internal Medicine; Visit Provider Internal Medicine
DX: E04.2 Nontoxic multinodular goiter (principal)
CPT/HCPCS: 76536

== ENCOUNTER → 2022-06-21 13:14 | Outpatient (BNVA) | payer OTHER, SELFPAY | PROVIDERS: PCP Internal Medicine; Visit Provider Nurse Practitioner Family | DX: M54.50 Low back pain, unspecified (principal); M70.61 Trochanteric bursitis, right hip; M70.62 Trochanteric bursitis, left hip; M25.551 Pain in right hip; M25.552 Pain in left hip | CPT/HCPCS: 99202 ==

== ENCOUNTER 2022-07-24 06:39 | Outpatient (REF) | payer OTHER, SELFPAY | END 2022-07-24 06:40 | disposition home or self-care (01) | LOC: CF 06:39 | PROVIDERS: Visit Provider Anesthesiology | DX: M70.61 Trochanteric bursitis, right hip (principal); M70.62 Trochanteric bursitis, left hip; M25.551 Pain in right hip; M25.552 Pain in left hip; M54.50 Low back pain, unspecified | CPT/HCPCS: 20611; J2795; J3301 ==

== ENCOUNTER → 2022-09-24 08:52 | Outpatient (BNVA) | payer OTHER, SELFPAY | PROVIDERS: PCP Internal Medicine; Visit Provider Nurse Practitioner Family | DX: M70.61 Trochanteric bursitis, right hip (principal); M70.62 Trochanteric bursitis, left hip; M54.50 Low back pain, unspecified; M25.551 Pain in right hip; M25.552 Pain in left hip; M53.3 Sacrococcygeal disorders, not elsewhere classified | CPT/HCPCS: 99212 ==

== ENCOUNTER 2022-10-18 09:45 | Day surgery (SDC) | payer OTHER, SELFPAY ==
[2022-10-12 14:02] VITALS: BMI 34.3
--- NOTE | 2022-10-17 10:49 | HO.ANESPROP2 ---
Documented by User: Jahaira Herrera NP 10/17/22 10:51 HPI - Anesthesia Eval Consult details Narrative: 37yo F for Left Therapeutic Intra-Articular Hip Injection s/p gastric sleeve 01/2022 with GA-ETT 7 PMFSH Active Problems Active Problems: All Active Problems (Updated 09/24/22 @ 09:14 by RODRÍGUEZ Aquino) Eczema (Acute) Candidiasis, intertrigo (Acute) Steatosis, liver (Acute) Liver fibrosis (Acute) S/P laparoscopic sleeve gastrectomy (Acute) Obesity (BMI 30-39.9) (Acute) Encounter for annual routine gynecological examination (Acute) Left hip pain (Acute) Right hip pain (Acute) Multinodular thyroid (Acute) Bony sclerosis (Acute) Lower back pain (Acute) Lumbar radiculopathy (Acute) Greater trochanteric bursitis of both hips (Acute) Acute sinusitis (Acute) Rash (Acute) Sacroiliac joint pain (Acute) GERD (gastroesophageal reflux disease) (Acute) Obesity (Acute) Past Medical History Medical History (Updated 09/24/22 @ 09:14 by RODRÍGUEZ Aquino) Abnormal uterine bleeding (AUB) Binge-eating disorder, moderate BMI 39.0-39.9,adult Breakthrough bleeding on depo provera Breast lump on left side at 11 o'clock position BV (bacterial vaginosis) Chronic cough Cough Depression screening Encounter for annual routine gynecological examination Family history of breast cancer in first degree relative GERD (gastroesophageal reflux disease) Goiter Hx of renal calculi Hypovitaminosis D Iron deficiency anemia due to chronic blood loss Low thyroid stimulating hormone (TSH) level Morbid obesity Morbid obesity with BMI of 45.0-49.9, adult Obesity Onychocryptosis Onychomycosis PCOS (polycystic ovarian syndrome) Physical exam [id number] syndrome manifesting as chronic fatigue Pre-op evaluation Primary osteoarthritis, right shoulder Thyroid disease Unsatisfactory cervical Papanicolaou smear Vitamin B12 deficiency Family History Family History Father No problems noted. Mother Breast cancer, Onset Age: 43 Maternal Aunt Breast cancer Maternal Grandmother Breast cancer Family history of problems with anesthesia: No Surgical History Surgical History (Updated 10/12/22 @ 13:55 by Anamika Castillo RN) Gastric bypass status for obesity H/O shoulder surgery History of cystoscopy History of hair or hair follicle condition History of tooth extraction Hx of dilation and curettage Hx of lithotripsy History of Problems with Anesthesia: No Social History Social History Housing: House Are you a primary acute care nursing assistant to a significant other at home: No Do you presently have visiting nurse or other home services: No Alcohol intake: current Alcohol intake frequency: holidays/special occasions only Alcohol type: beer Patient Tobacco Use Status: Never used Tobacco e-Cigarette/Vaping Use: Never Used Second Hand Smoke Exposure: No Use of substances other than those prescribed or required for medical reasons: No Are you DNR?: No Advance Directives: No Advance Directives Information Provided: Yes service: No Current occupational status: employed 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 Current occupational exposures/hazards: No Cognitive needs: No Hearing needs: No Vision needs: No Meds Allergies Allergy/AdvReac Type Severity Reaction Status Date / Time No Known Allergies Allergy Verified 09/24/22 08:59 Home Medications Medication Instructions Recorded Confirmed Last Taken Type levonorgestrel 21 mcg/24 hours (8 intrauterine 04/10/22 07/19/22 Unknown History yrs) 52 mg intrauterine device (Mirena) celebrate multivitamin PO 04/23/22 07/19/22 Unknown History multivitamin (One-A-Day Essential 1 tab PO DAILY 07/19/22 10/12/22 Unknown History tablet) Exam Exam Date and Time: October 17, 2022 1049 Height,Weight and Vital Signs: Height 5 ft 9 in Weight 105.404 kg Assessment and Plan Assessment Anesthesia Assessment: Chart Reviewed Final Anesthetic Review Family History of Problems with Anesthesia: No History of Problems with Anesthesia: No Documented by User: Zuhair Mazariegos MD 10/18/22 11:33 [facility] Past Medical History Medical History (Updated 09/24/22 @ 09:14 by RODRÍGUEZ Aquino) Abnormal uterine bleeding (AUB) Binge-eating disorder, moderate BMI 39.0-39.9,adult Breakthrough bleeding on depo provera Breast lump on left side at 11 o'clock position BV (bacterial vaginosis) Chronic cough Cough Depression screening Encounter for annual routine gynecological examination Family history of breast cancer in first degree relative GERD (gastroesophageal reflux disease) Goiter Hx of renal calculi Hypovitaminosis D Iron deficiency anemia due to chronic blood loss Low thyroid stimulating hormone (TSH) level Morbid obesity Morbid obesity with BMI of 45.0-49.9, adult Obesity Onychocryptosis Onychomycosis PCOS (polycystic ovarian syndrome) Physical exam [id number] syndrome manifesting as chronic fatigue Pre-op evaluation Primary osteoarthritis, right shoulder Thyroid disease Unsatisfactory cervical Papanicolaou smear Vitamin B12 deficiency Patient : No Family History Family History Father No problems noted. Mother Breast cancer, Onset Age: 43 Maternal Aunt Breast cancer Maternal Grandmother Breast cancer Surgical History Surgical History (Updated 10/12/22 @ 13:55 by Anamika Castillo RN) Gastric bypass status for obesity H/O shoulder surgery History of cystoscopy History of hair or hair follicle condition History of tooth extraction Hx of dilation and curettage Hx of lithotripsy Social History Social History Housing: House Are you a primary acute care nursing assistant to a significant other at home: No Do you presently have visiting nurse or other home services: No Alcohol intake: current Alcohol intake frequency: holidays/special occasions only Alcohol type: beer Patient Tobacco Use Status: Never used Tobacco e-Cigarette/Vaping Use: Never Used Second Hand Smoke Exposure: No Use of substances other than those prescribed or required for medical reasons: No Are you DNR?: No Advance Directives: No Advance Directives Information Provided: Yes service: No Current occupational status: employed 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 Current occupational exposures/hazards: No Cognitive needs: No Hearing needs: No Vision needs: No Meds Allergies Allergy/AdvReac Type Severity Reaction Status Date / Time No Known Allergies Allergy Verified 09/24/22 08:59 Home Medications Medication Instructions Recorded Confirmed Last Taken Type levonorgestrel 21 mcg/24 hours (8 intrauterine 04/10/22 07/19/22 Unknown History yrs) 52 mg intrauterine device (Mirena) celebrate multivitamin PO 04/23/22 07/19/22 Unknown History multivitamin (One-A-Day Essential 1 tab PO DAILY 07/19/22 10/12/22 Unknown History tablet) Exam Airway Mallampati Class: II TM Dist: <=3cm Neck ROM: Full Heart: ok Lungs: ok Assessment and Plan Assessment Anesthesia Assessment: Anesthesia Plan Discussed Final Anesthetic Review NPO: Yes ASA Class: II Final Preanesthetic Review: No Changes in Pt Med Stat, Meds/Allgs Chart Reviewed, Consent Obtained/Reviewed and Anes Risks/Benef Reviewed Patient Risk: Intermediate Procedure Risk: Low Anesthetic Plan Anesthetic Plan: MAC: and Agree w/ Assess. and Plan Disposition: Standard PACU
--- NOTE | ~2022-10-18 | FL_ITS ---
EXAMINATION: XR FLUOROSCOPY WITH IMAGES CLINICAL INFORMATION: Left hip pain. COMPARISON: None available. TECHNIQUE: Fluoroscopy Supervised By: Dr. Francisco Javier Andino. Fluoroscopy Time: 0.2 minutes . Cumulative Dose: 5.89 mGy. DAP: 0.102 Gycm2. Images: 1. FINDINGS: There is single left hip fluoroscopy images revealing needle positioned lateral left hip joint with contrast opacifying the joint space. No gross bony abnormality seen. FL/FL guidance in OR IMPRESSION: Fluoroscopy was provided to referring physician for left hip joint injection.
[2022-10-18 10:14] LABS: UPreg QC Valid YES; Urine Pregnancy NEGATIVE (NEGATIVE)
[2022-10-18 10:20] VITALS: BMI 33.5
[2022-10-18 10:22] VITALS: BP 110/78; PULSE 87; RESP 18; TEMP 36.2; O2SAT 99
[2022-10-18 10:51] VITALS: BMI 33.5
[2022-10-18] MEDS: Lactated Ringers 1,000 ML 100 ML IVCONT (10:52)
--- NOTE | 2022-10-18 11:22 | MHC.SHP ---
Pre-Procedural Eval Section A Date of Service: 10/18/22 The patient is an INPATIENT: No Changes since office visit: Yes Patient answered all questions The History & Physical has been completed within 30 days and I have reviewed it.: No Section B Chief Complaint: right and left hip pain Details of Present Illness: as above Relevant Family History (Specify if Yes): No Relevant Social History: None Present Medications: see Short Stay Collaborative assessment Medical History: No relevant PMH History of Previous Operations: No relevant previous surgery Allergies: Allergies Allergy/AdvReac Type Severity Reaction Status Date / Time No Known Allergies Allergy Verified 09/24/22 08:59 Review of Systems Sugical H&P ROS: Negative: Cardiovascular, Respiratory, Neurological, Psychiatric, Hem-Onc, Allergic/Immunologic, Gastrointestinal, Genitourinary, Musculoskeletal, Integumentary, Endocrine and Eyes/Ears/Nose/Throat and Yes, Specify: Constitution (morbid obesity) Exam Surgical H&P Exam: Normal: HEENT, Normal: Heart, Normal: Lungs, Normal: Extremities, Normal: Skin and Normal: Neurological and Significant Findings: Abdomen (enlarged due to fat) Plan Diagnosis/Plan: Unchanged I have reviewed the history and physical and performed a pertinent physical examination on my patient. No changes have occurred unless specified. Time Spent With Patient Time: Total time managing care of this patient today ____ minutes.
--- NOTE | 2022-10-18 12:14 | P.BOP_ITS ---
Brief Operative Note Date of Service: 10/18/22 Pre-op diagnosis: left hip osteoarthritis Post-op diagnosis: same Procedure: left intra-articular hip steroid injection Surgeon: Collins Martinez MD Anesthesia: MAC Was an Career Coach used for this Procedure?: No Estimated blood loss (mL): 0 Condition: stable Disposition: PACU
[2022-10-18 12:18] VITALS: BP 108/85; PULSE 75; RESP 14; TEMP 36.6; O2SAT 97
--- NOTE | 2022-10-18 12:18 | P.OP_ITS ---
Operative Note Operative Note Date of Service: 10/18/22 Narrative: Left?Intra-articular hip injection. Informed consent was explained to the patient. All questions were explained and answered.? The patient was taken inside of the operating room where she was positioned right lateral decubitus on operating table..? Time-out was performed delineating patient's name and date of , correct site, side, the nature of the procedure, patient's allergy, preoperative ant ibiotic if needed, need for VT prophylaxis..? All operating room staff was participating in OR time-out procedure. [place] [employer] monitors were applied and patient was moderately sedated. Left hip area of the patient was prepped with ChloraPrep and draped with sterile towels.? Sterilely draped C-arm was brought over the operating field and picture of left and right lateral views of the bilateral hip joints were delineated on the screen.? The smaller joint silhouette was chosen as the target.? Direction of the femoral neck was noted and the projection of that direction was delineated on the skin with skin markers.? Projection of the right trochanter to the skin was chosen as the initial needle insertion point.? After that the skin and subcutaneous tissues was anesthetized with 2% lidocaine 2.5 mL.? 22 gauge 5 in long needle was inserted through the skin and started to advance to the joint space under anterior posterior view.? When needle entered the capsule of the joint small amount of the contrast was injected delineating intra-articular space.? After that treatment solution containing 5 mls of ropivacaine mixed with 40 mg of Kenalog was injected into the joint.? The needle was withdrawn sterile dressing was applied. The patient tolerated procedure well.?
[2022-10-18 12:33] VITALS: BP 125/74; PULSE 62; RESP 16; O2SAT 98
[2022-10-18 12:48] VITALS: BP 128/74; PULSE 66; RESP 16; TEMP 36.2; O2SAT 99
== END 2022-10-18 13:31 | disposition home or self-care (01) ==
PROVIDERS: Registered Nurse Emergency; PCP Internal Medicine; Visit Provider Anesthesiology
PROC: (CPT 20610; principal; 2022-10-18 11:30)
DX: M25.552 Pain in left hip (principal); M70.62 Trochanteric bursitis, left hip; M54.50 Low back pain, unspecified; M53.3 Sacrococcygeal disorders, not elsewhere classified; M19.011 Primary osteoarthritis, right shoulder; Z91.81 History of falling; E55.9 Vitamin D deficiency, unspecified; R05.3 Chronic cough; E66.9 Obesity, unspecified; Z68.34 Body mass index [BMI] 34.0-34.9, adult; F50.81 Binge eating disorder; K21.9 Gastro-esophageal reflux disease without esophagitis; G93.32 Myalgic encephalomyelitis/chronic fatigue syndrome; U09.9 Post COVID-19 condition, unspecified; Z98.84 Bariatric surgery status; Z98.890 Other specified postprocedural states; Z87.442 Personal history of urinary calculi
CPT/HCPCS: 20610; 81025; J1100; J2250; J2795; J3010; J3301; Q9965; Q9967

== ENCOUNTER 2022-10-25 10:27 | Day surgery (SDC) | payer OTHER, SELFPAY ==
--- NOTE | 2022-10-24 08:41 | P.CONAN_ITS ---
Documented by User: Jahaira Herrera NP 10/24/22 08:42 HPI - Anesthesia Eval Consult details Narrative: 37yo F for Right Therapeutic Inta-Articular Hip Injection s/p Left hip injection 10/18/22 with MAC PMFSH Active Problems Active Problems: All Active Problems (Updated 09/24/22 @ 09:14 by RODRÍGUEZ Aquino) Eczema (Acute) Candidiasis, intertrigo (Acute) Steatosis, liver (Acute) Liver fibrosis (Acute) S/P laparoscopic sleeve gastrectomy (Acute) Obesity (BMI 30-39.9) (Acute) Encounter for annual routine gynecological examination (Acute) Left hip pain (Acute) Right hip pain (Acute) Multinodular thyroid (Acute) Bony sclerosis (Acute) Lower back pain (Acute) Lumbar radiculopathy (Acute) Greater trochanteric bursitis of both hips (Acute) Acute sinusitis (Acute) Rash (Acute) Sacroiliac joint pain (Acute) GERD (gastroesophageal reflux disease) (Acute) Obesity (Acute) Past Medical History Medical History (Updated 09/24/22 @ 09:14 by RODRÍGUEZ Aquino) Abnormal uterine bleeding (AUB) Binge-eating disorder, moderate BMI 39.0-39.9,adult Breakthrough bleeding on depo provera Breast lump on left side at 11 o'clock position BV (bacterial vaginosis) Chronic cough Cough Depression screening Encounter for annual routine gynecological examination Family history of breast cancer in first degree relative GERD (gastroesophageal reflux disease) Goiter Hx of renal calculi Hypovitaminosis D Iron deficiency anemia due to chronic blood loss Low thyroid stimulating hormone (TSH) level Morbid obesity Morbid obesity with BMI of 45.0-49.9, adult Obesity Onychocryptosis Onychomycosis PCOS (polycystic ovarian syndrome) Physical exam [id number] syndrome manifesting as chronic fatigue Pre-op evaluation Primary osteoarthritis, right shoulder Thyroid disease Unsatisfactory cervical Papanicolaou smear Vitamin B12 deficiency Family History Family History Father No problems noted. Mother Breast cancer, Onset Age: 43 Maternal Aunt Breast cancer Maternal Grandmother Breast cancer Family history of problems with anesthesia: No Surgical History Surgical History (Updated 10/12/22 @ 13:55 by Anamika Castillo RN) Gastric bypass status for obesity H/O shoulder surgery History of cystoscopy History of hair or hair follicle condition History of tooth extraction Hx of dilation and curettage Hx of lithotripsy History of Problems with Anesthesia: No Social History Social History Housing: House Are you a primary property caretaker to a significant other at home: No Do you presently have visiting nurse or other home services: No Alcohol intake: current Alcohol intake frequency: does not drink Alcohol type: beer Patient Tobacco Use Status: Never used Tobacco e-Cigarette/Vaping Use: Never Used Second Hand Smoke Exposure: No Advance Directives: No Advance Directives Information Provided: Yes Nutrition Risks: No Nutritional Risk service: No Current occupational status: employed 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 Current occupational exposures/hazards: No Cognitive needs: No Hearing needs: No Vision needs: No Meds Allergies Allergy/AdvReac Type Severity Reaction Status Date / Time No Known Allergies Allergy Verified 09/24/22 08:59 Home Medications Medication Instructions Recorded Confirmed Last Taken Type levonorgestrel 21 mcg/24 hours (8 intrauterine 04/10/22 07/19/22 Unknown History yrs) 52 mg intrauterine device (Mirena) celebrate multivitamin PO 04/23/22 07/19/22 Unknown History Exam Exam Date and Time: October 24, [id number] Assessment and Plan Assessment Anesthesia Assessment: Chart Reviewed Final Anesthetic Review Family History of Problems with Anesthesia: No History of Problems with Anesthesia: No Documented by User: Frida Nogueira MD 10/25/22 11:24 [facility] Past Medical History Medical History (Updated 09/24/22 @ 09:14 by RODRÍGUEZ Aquino) Abnormal uterine bleeding (AUB) Binge-eating disorder, moderate BMI 39.0-39.9,adult Breakthrough bleeding on depo provera Breast lump on left side at 11 o'clock position BV (bacterial vaginosis) Chronic cough Cough Depression screening Encounter for annual routine gynecological examination Family history of breast cancer in first degree relative GERD (gastroesophageal reflux disease) Goiter Hx of renal calculi Hypovitaminosis D Iron deficiency anemia due to chronic blood loss Low thyroid stimulating hormone (TSH) level Morbid obesity Morbid obesity with BMI of 45.0-49.9, adult Obesity Onychocryptosis Onychomycosis PCOS (polycystic ovarian syndrome) Physical exam [id number] syndrome manifesting as chronic fatigue Pre-op evaluation Primary osteoarthritis, right shoulder Thyroid disease Unsatisfactory cervical Papanicolaou smear Vitamin B12 deficiency Family History Family History Father No problems noted. Mother Breast cancer, Onset Age: 43 Maternal Aunt Breast cancer Maternal Grandmother Breast cancer Surgical History Surgical History (Updated 10/12/22 @ 13:55 by Anamika Castillo RN) Gastric bypass status for obesity H/O shoulder surgery History of cystoscopy History of hair or hair follicle condition History of tooth extraction Hx of dilation and curettage Hx of lithotripsy Social History Social History Housing: House Are you a primary property caretaker to a significant other at home: No Do you presently have visiting nurse or other home services: No Alcohol intake: current Alcohol intake frequency: does not drink Alcohol type: beer Patient Tobacco Use Status: Never used Tobacco e-Cigarette/Vaping Use: Never Used Second Hand Smoke Exposure: No Advance Directives: No Advance Directives Information Provided: Yes Nutrition Risks: No Nutritional Risk service: No Current occupational status: employed 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 Current occupational exposures/hazards: No Cognitive needs: No Hearing needs: No Vision needs: No Meds Allergies Allergy/AdvReac Type Severity Reaction Status Date / Time No Known Allergies Allergy Verified 09/24/22 08:59 Home Medications Medication Instructions Recorded Confirmed Last Taken Type levonorgestrel 21 mcg/24 hours (8 intrauterine 04/10/22 07/19/22 Unknown History yrs) 52 mg intrauterine device (Mirena) celebrate multivitamin PO 04/23/22 07/19/22 Unknown History Assessment and Plan Assessment Anesthesia Assessment: Anesthesia Plan Discussed Final Anesthetic Review NPO: Yes ASA Class: II Final Preanesthetic Review: No Changes in Pt Med Stat, Meds/Allgs Chart Reviewed, Consent Obtained/Reviewed and Anes Risks/Benef Reviewed Patient Risk: Low Procedure Risk: Low Anesthetic Plan Anesthetic Plan: MAC: Disposition: Standard PACU
--- NOTE | ~2022-10-25 | FL_ITS ---
EXAMINATION: XR FLUOROSCOPY WITH IMAGES CLINICAL INFORMATION: Procedure 0R. COMPARISON: None available. TECHNIQUE: Fluoroscopy Supervised By: Dr. Collins Martinez. Fluoroscopy Time: 0.2 minutes. Cumulative Dose: 12.3 mGy. DAP: 0.215 Gycm2. Images: . FINDINGS: Image demonstrates needle placement and contrast injection of the right hip joint FL/FL guidance in OR IMPRESSION: Fluoroscopy guidance for right hip joint injection
[2022-10-25 05:57] VITALS: BMI 34.3
[2022-10-25 10:31] VITALS: BP 159/92; PULSE 83; RESP 20; TEMP 36.3; O2SAT 98
--- NOTE | 2022-10-25 10:38 | PC.NURSE ---
no meds taken today
[2022-10-25 10:48] LABS: UPreg QC Valid YES; Urine Pregnancy NEGATIVE (NEGATIVE)
[2022-10-25] MEDS: Lactated Ringers 1,000 ML 100 ML IVCONT (10:53)
--- NOTE | 2022-10-25 11:26 | P.HPSUR_ITS ---
Pre-Procedural Eval Section A Date of Service: 10/25/22 The patient is an INPATIENT: No Changes since office visit: Yes Patient answered all questions The History & Physical has been completed within 30 days and I have reviewed it.: No Section B Chief Complaint: right and left hip pain, Details of Present Illness: as above, right hip osteoarthritis Relevant Family History (Specify if Yes): No Relevant Social History: None Present Medications: None Medical History: No relevant PMH History of Previous Operations: No relevant previous surgery Allergies: Allergies Allergy/AdvReac Type Severity Reaction Status Date / Time No Known Allergies Allergy Verified 09/24/22 08:59 Review of Systems Sugical H&P ROS: Negative: Cardiovascular, Respiratory, Neurological, Psychiatric, Hem-Onc, Allergic/Immunologic, Gastrointestinal, Genitourinary, Musculoskeletal, Integumentary, Endocrine and Eyes/Ears/Nose/Throat and Yes, Specify: Constitution (trivial obesity) Exam Surgical H&P Exam: Normal: HEENT, Normal: Heart, Normal: Lungs, Normal: Extremities, Normal: Skin and Normal: Neurological and Significant Findings: Ab domen (enlarged due to i/a and s/q fat) Plan Diagnosis/Plan: Unchanged I have reviewed the history and physical and performed a pertinent physical examination on my patient. No changes have occurred unless specified. Time Spent With Patient Time: Total time managing care of this patient today ____ minutes.
[2022-10-25 12:10] VITALS: BP 119/79; PULSE 68; RESP 16; TEMP 36.3; O2SAT 99
--- NOTE | 2022-10-25 12:12 | P.BOP_ITS ---
Brief Operative Note Date of Service: 10/25/22 Pre-op diagnosis: right hip pain, hip osteoarthritis, right. Post-op diagnosis: same Procedure: intra-articular right hip steroid injection Surgeon: Collins Martinez MD Anesthesia: MAC Was an Planishing Hammer Operator used for this Procedure?: No Estimated blood loss (mL): 0 Condition: stable Disposition: PACU
--- NOTE | 2022-10-25 12:14 | W.PM.OPN ---
Operative Note Operative Note Date of Service: 10/25/22 Narrative: Right therapeutic Intra-articular hip injection. - Informed consent was explained to the patient. All questions were explained and answered.? The patient was taken inside of the operating room where he was positioned left lateral decubitus on operating table..? Time-out was performed delineating patient's name and date of , correct site, side, the nature of the procedure, patient's allergy, preoperative antibiotic if needed, need for VT prophylaxis..? All operating room staff was participating in OR time-out procedure.? Right hip area of the patient was prepped with ChloraPrep and draped with sterile towels.? C-arm was brought over the operating field and picture of left and right lateral views of the bilateral hip joints were delineated on the screen.? The smaller joint silhouette was chosen as the target.? Direction of the femoral neck was noted and the projection of that direction was delineated on the skin? Projection of the right trochanter to the skin was chosen as the initial needle insertion point.? After that the skin and subcutaneous tissues was anesthetized with 2% lidocaine 2.5 mL.? 22 gauge 5 in long needle was inserted through the skin and started to advance to the joint space under anterior posterior view.? When needle entered the capsule of the joint small amount of the contrast was injected delineating intra-articular space.? After that treatment solution containing ropivacaine 0.5% 4 mls and 40 mg of Kenalog was injected into the joint.? The needle was withdrawn sterile dressing was applied.? The patient tolerated procedure well.? SHe was taken to recovery room where recovered uneventfully
[2022-10-25 12:24] VITALS: BP 130/94; PULSE 60; RESP 16; TEMP 36.2; O2SAT 99
== END 2022-10-25 12:44 | disposition home or self-care (01) ==
PROVIDERS: Registered Nurse Emergency; PCP Internal Medicine; Visit Provider Anesthesiology
PROC: (CPT 20610; principal; 2022-10-25 11:30)
DX: M25.551 Pain in right hip (principal); Z87.81 Personal history of (healed) traumatic fracture; M89.8X8 Other specified disorders of bone, other site; M54.50 Low back pain, unspecified; M53.3 Sacrococcygeal disorders, not elsewhere classified; E66.9 Obesity, unspecified; F50.81 Binge eating disorder; Z68.34 Body mass index [BMI] 34.0-34.9, adult; Z98.84 Bariatric surgery status; E55.9 Vitamin D deficiency, unspecified; E53.8 Deficiency of other specified B group vitamins; D50.0 Iron deficiency anemia secondary to blood loss (chronic); G93.32 Myalgic encephalomyelitis/chronic fatigue syndrome; U09.9 Post COVID-19 condition, unspecified; Z87.442 Personal history of urinary calculi
CPT/HCPCS: 20610; 81025; J2795; J3010; J3301; Q9967

== ENCOUNTER 2022-12-03 09:02 | Outpatient (AMB) | payer OTHER, SELFPAY ==
--- NOTE | 2022-12-03 09:18 | MHC.OFFVIS ---
Intake Vital Signs 12/03/22 09:25 Height 5 ft 9 in Weight 232 lb BMI 34.3 BP 128/66 Blood Pressure Location Rt brachial Position Sitting Respiration 18 Pulse 64 Pulse Source Pulse Oximeter Pulse Oximetry (%) 98 Oxygen Delivery Method Room Air Intake Visit Reasons: s/p Bilateral Hip Steroid Inj 10/18 & 10/25 Intake Note: patient comes in for post-op. Allergies No Known Allergies Allergy (Verified 12/03/22 09:25) HPI HPI Comments History of Present Illness Details Patient presents today in the office to assess response to Bilateral therapeutic intra-articular hip joint injections 1st on the left and then on the right. She reports found and significant pain relief with better mobility better social interactions better activities of daily living. Unfortunately the results of the injections lasted only for 3 and half weeks. After that patient's pain slowly came back and now she still reports significant pain in bilateral hips. It was good pain relieve but unfortunately it lasted too short to consider this procedure to be performed on regular basis. I offered this patient psychological evaluation, trial of [facility] [employer] to treat her pain. Due to significant pain syndrome she is developing Complex regional pain syndrome of bilateral lower extremities. See exam as below Patient reports 75% pain relief in the area of GTB for 4 weeks with better sleep, partial improvement in her daily activities and mobility. Patient continues to reports bilateral lateral hip pain that radiates to her groins with external and internal rotations. She also has minimal pain with lumbar extension and bilateral sacroiliac joint tenderness, left worse than right. Past procedures: 07/24/22: Bilateral Therapeutic GTB injections-75% pain relief for 4 weeks PRIOR: Patient is a pleasant 36 years old female presents today with bilateral hip pain for 3-4 months. Patient reports history of T3 to coccyx bone fracture due to fall injury from a horse over 10 years ago. She has [place] [facility] [place] to [place] and has been asymptomatic for back pain except occasional discomfort with back extension. Patient reports her main pain generator today is bilateral hip pain that radiates into her posterolateral hips with mild groin pain bilaterally. Pain is described as intermittent pulsing, throbbing, pounding, stabbing, lancinating, tingling, stinging, dull, sore, hurting, aching and heavy. Pain is rated as 7-8/10 average intensity which is worse at night and increases with prolonged sitting, changing positions from sitting to standing, side sleeping positions and weather changes. Seated SLR testing is negative bilaterally. Back pain is reproducible with back extension. Patient also presents with significant localized tenderness in the projection of both greater trochanteric bursae. She has been taking Tylenol and applying heat compresses with minimal results. She cannot take NSAIDs due to gastric sleeve bypass in 01/2022 but occasionally will take Aleve due to severe bilateral hip pain, left worse than right. Patient is frustrated as she cannot participate in physical therapy status post gastric sleeve due to significant pain. Patient denies any fever, abdominal pain, bladder or bowel incontinence or saddle anesthesia. Pelvis xray on 05/10/22 showed incidental bone island again suggested left intertrochanteric region and left atrium. There is a subtle 5 mm mineralization adjacent to the superior aspect of the left hip greater trochanter which may represent calcific tendinosis tendon insertion. Patient is interested in undergoing bilateral GTB and hip steroid injections to alleviate her bilateral hip pain. [facility] Medical History (Updated 12/03/22 @ 12:16 by Collins Martinez MD) Abnormal uterine bleeding (AUB) Binge-eating disorder, moderate BMI 39.0-39.9,adult Breakthrough bleeding on depo provera Breast lump on left side at 11 o'clock position BV (bacterial vaginosis) Chronic cough Cough Depression screening Encounter for annual routine gynecological examination Family history of breast cancer in first degree relative GERD (gastroesophageal reflux disease) Goiter Hx of renal calculi Hypovitaminosis D Iron deficiency anemia due to chronic blood loss Low thyroid stimulating hormone (TSH) level Morbid obesity Morbid obesity with BMI of 45.0-49.9, adult Obesity Onychocryptosis Onychomycosis PCOS (polycystic ovarian syndrome) Physical exam [id number] syndrome manifesting as chronic fatigue Pre-op evaluation Primary osteoarthritis, right shoulder Thyroid disease Unsatisfactory cervical Papanicolaou smear Vitamin B12 deficiency Surgical History (Updated 10/12/22 @ 13:55 by Anamika Castillo RN) Gastric bypass status for obesity H/O shoulder surgery History of cystoscopy History of hair or hair follicle condition History of tooth extraction Hx of dilation and curettage Hx of lithotripsy Family History Father No problems noted. 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 Current occupational exposures/hazards: No Cognitive needs: No Hearing needs: No Vision needs: No Female Reproductive History Menstrual Age of Menarche: 10 Review of Systems Const All systems reviewed & are unremarkable except as noted in HPI and below ENT Reports Normal hearing present Neuro Reports Normal hearing present, Denies confusion and Denies Sensory deficit (Neuro) Psych Denies confusion Physical Exam Vital Signs: Last Vital Signs Pulse 64 12/03/22 09:25 Resp 18 12/03/22 09:25 BP 128/66 12/03/22 09:25 Pulse Ox 98 12/03/22 09:25 Oxygen Delivery Method Room Air 12/03/22 09:25 BMI result Body Mass Index 34.3 Const General: cooperative, healthy appearing, no acute distress, alert and awake; No confusion Nutritional Appearance: well nourished and obese Orientation/consciousness: patient oriented x3 and No confusion Limitations: no limitations HEENT Head: Yes normal to inspection, Yes normocephalic, Yes atraumatic and No occipital foramen tenderness Ears: hearing grossly normal bilaterally General nose exam: No nasal discharge present Face and sinus: Yes normal facial exam and Yes face symmetric Eyes General: appearance normal, both eyes and all related structures Visual Urrutia: normal visual urrutia by confrontation Pupils: Equal, round and reactive pupils present EOM: EOMs intact bilaterally Neck Neck: Yes normal visual inspection, Yes full ROM, Yes no lymphadenopathy, Yes supple, No anterior neck swelling and Yes no JVD Resp Effort & Inspection: normal respiratory effort, able to speak in complete sentences, no audible wheezes, no cough and symmetric chest movement Cardio Jugular venous distension: no JVD Bruits: no carotid bruits Peripheral pulses: radial pulses present, posterior tibial pulses present and dorsalis pedis present GI Inspection: Yes normal to inspection, No Abdominal wall edema and Yes obesity Palpation (GI): Soft to palpation and nontender General: Yes no CVA tenderness Back/Spine/Pelvis Other: Patient is able to walk and stand on heels and tip toes with no difficulties demonstrating good motor tone. No limping. Can flex forward to 80-85 degrees and extend to 10-15 degrees before experiencing lower back pain with extension. Demonstrates 5/5 strength of quadriceps bilaterally as well as flexion/dorsiflexion of bilateral feet against resistance. 2+ pedal pulses bilaterally. Straight leg rise with dorsiflexion negative bilaterally. +2 patellar and achilles reflexes bilaterally. Facet loading test positive bilaterally. Syed signs positive bilaterally. Walter?s and Stinchfield tests are positive bilaterally. Moderate groin pain with internal and external hip rotations bilaterally. No tenderness on the piriformis. Back: no CVA tenderness Cervical Spine: normal cervical lordosis, cervical ROM normal, cervical muscular tenderness and No Cervical spine tenderness Thoracic/Lumbar Spine: thoracic and lumbar spine normal to inspection, Lasegue's sign negative, straight leg raise negative bilaterally, pain with thoraco-lumbar ROM, paraspinal muscle tenderness, thoraco-lumbar ROM limited, No thoracic spinal tenderness and lumbar spinal tenderness at L5 Pelvis: no buttock tenderness Sacroiliac joints: bilaterally tender to palpation Skin General skin exam: no rashes or lesions noted Neuro General: patient oriented x3, moves all extremities, Normal light touch and pain sensation, CN's II-XI intact bilaterally and No confusion Cranial nerves: Yes Equal, round and reactive pupils present, Yes Bilaterally intact EOM present and Yes Normal hearing present Cognition (Neuro): normal cognition Gait exam (Neuro): Normal gait present and No Assistive device used Motor exam (neuro): 5/5 motor strength present throughout, no tremor noted, Normal motor muscle tone present throughout and Motor abnormalities not present Sensory Exam: No Sensory deficit (Neuro) Coordination: Romberg test negative Extrem Other: Reports tiredness in bilateral lower extremities due to severe pain in bilateral hips. Reports hips muscle atrophy in the past several months. Reports severe pain in bilateral hips with movements. General: No capillary refill normal, Yes no clubbing, cyanosis or edema and Yes no calf tenderness Right lower extremity: hip/thigh (internal snapping hip) Details: normal to inspection, tenderness Location: of the hip Location: posterolaterally and over the greater trochanter and normal ROM; no swelling, no ecchymosis and no crepitus Left lower extremity: hip/thigh Details: normal to inspection and tenderness Location: of the hip Location: laterally, posterolaterally and over the great trochanter; no swelling, no ecchymosis and no crepitus Psych Appearance: grossly normal and well kempt Mental Status: mental status grossly normal Speech and movement: Normal speech and movement present and Clear speech present Affect: normal affect Attitude: cooperative Thought process: Normal thought process present Thought content: Normal thought content present Insight: Good insight present (Psych) Judgement: Good judgement present (Psych) Results Reviewed Results Reviewed: XR PELVIS 05/10/22 FINDINGS: Normal bony mineralization. No fracture or destructive process. The SI joints and pubis show no joint narrowing or erosive change or diastases. The hips show no joint narrowing or erosive change. There is incidental bone island again suggested left intertrochanteric region and left atrium. There is a subtle 5 mm mineralization adjacent to the superior aspect left hip greater trochanter which may represent calcific tendinosis tendon insertion. Bowel gas unremarkable. There is an IUD overlying the central pelvis just right of midline. IMPRESSION: -Subtle 5 mm mineralization adjacent to superior aspect left hip greater trochanter which may represent calcific tendinosis tendon insertion. -No joint narrowing or erosive change. XR HIP, BILATERAL 04/23/22 FINDINGS: 2 views of the left hip do not demonstrate any evidence of acute fracture or dislocation. Hip joint space is maintained. No femoral head collapse is seen. Mild spurring greater trochanter. There are a few sclerotic lesions seen about the femoral neck and left sacrum without destructive bony findings. There is no evidence of acute fracture or dislocation of the right hip. There is mild spurring seen about the greater trochanter. Small bone islands are seen about the right femoral head and intertrochanteric region. IUD in place. Hip joint spaces maintained. IMPRESSION: No significant abnormality of the right hip or left hip identified. Nondestructive sclerotic lesions as described likely representing bone islands. Assessment & Plan Assessment & Plan (1) Greater trochanteric bursitis of both hips: Code(s): M70.61 - Trochanteric bursitis, right hip; M70.62 - Trochanteric bursitis, left hip (2) Lower back pain: Code(s): M54.50 - Low back pain, unspecified (3) Right hip pain: Code(s): M25.551 - Pain in right hip (4) Left hip pain: Code(s): M25.552 - Pain in left hip (5) Sacroiliac joint pain: Code(s): M53.3 - Sacrococcygeal disorders, not elsewhere classified (6) Complex regional pain syndrome i of lower limb, bilateral: Code(s): G90.523 - Complex regional pain syndrome I of lower limb, bilateral Plan Patient was given consideration of the bilateral total hip replacement, extensive physical therapy after completion of the procedure. Patient reported that she thinks that she is too young to go for total hip replacement. She 1 temporization of her condition. I offered her SCS spinal cord stimulator to treat bilateral Complex regional pain syndrome of the lower extremities. I will send her to psychological evaluation. Anticoagulation: Patient not on anticoagulant Justification for interventional therapy: ? Patient with average pain > 6/10 ? Patient has exhausted conservative therapy, low dose NSAIDs (history of gastric sleeve surgery) ?Patient is unable to participate in physical therapy due to pain The risks, consequences, alternatives, and benefits of various treatment options were discussed with the patient in great detail, including conservative management, injections and procedures. I informed her of the hyperglycemic effects of steroids. Coding Level of Care Code Est Pt Level 4 (74139) Diagnoses Greater trochanteric bursitis of both hips M70.61; M70.62 Lower back pain M54.50 Right hip pain M25.551 Left hip pain M25.552 Sacroiliac joint pain M53.3 Complex regional pain syndrome i of lower limb, bilateral G90.523
[2022-12-03 09:25] VITALS: BP 128/66; PULSE 64; RESP 18; O2SAT 98; BMI 34.3
== END 2022-12-03 09:53 | disposition home or self-care (01) ==
PROVIDERS: PCP Internal Medicine; Visit Provider Anesthesiology
DX: M70.61 Trochanteric bursitis, right hip (principal); M70.62 Trochanteric bursitis, left hip; M54.50 Low back pain, unspecified; M25.551 Pain in right hip; M25.552 Pain in left hip; M53.3 Sacrococcygeal disorders, not elsewhere classified; G90.523 Complex regional pain syndrome I of lower limb, bilateral
CPT/HCPCS: 99214

== ENCOUNTER → 2022-12-03 09:02 | Outpatient (BNVA) | payer OTHER, SELFPAY | PROVIDERS: PCP Internal Medicine; Visit Provider Anesthesiology | DX: G90.523 Complex regional pain syndrome I of lower limb, bilateral (principal); M53.3 Sacrococcygeal disorders, not elsewhere classified; M25.552 Pain in left hip; M25.551 Pain in right hip; M54.50 Low back pain, unspecified; M70.62 Trochanteric bursitis, left hip; M70.61 Trochanteric bursitis, right hip; M19.011 Primary osteoarthritis, right shoulder; Z98.84 Bariatric surgery status | CPT/HCPCS: 99212 ==

== ENCOUNTER 2022-12-17 10:48 | Outpatient (AMB) | payer OTHER, SELFPAY ==
[2022-12-17 10:49] VITALS: BP 132/80; PULSE 76; O2SAT 96; BMI 34.8
--- NOTE | 2022-12-17 10:49 | A.OFFPC_ITS ---
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: No Accompanied by: Self / Same As Patient Allergies No Known Allergies Allergy (Verified 12/17/22 10:51) Tobacco use date assessed: 12/17/22 Dental Screening Dental Screen Date: 12/17/22 Did you have a dental visit in the last 12 months?: Yes Did you have a dental problem in the last 6 months where you did not have access to dental care?: No Was dental information given to patient?: Patient has dentist HPI HPI Comments History of Present Illness Details 37-year-old female past medical history significant for GERD, nodular thyroid, s/p laparoscopic sleeve constructed and bilateral osteoarthritis hips. Patient currently following with pain management states she underwent 2 rounds hip injections for set of injections related to pain for 4-5 weeks and her 2nd round of injections gave her relief for only about 4 weeks. Pain management recommending patient see evaluation specialist for possible bilateral hip replacements. Patient has an appointment scheduled in December. pap smear: March 2022 eye exam: Recommended every couple of years. mammogram yearly due to significant Family hx of breast CA: Due in April TDAP: 10/2021 [facility] Medical History Abnormal uterine bleeding (AUB) Binge-eating disorder, moderate BMI 39.0-39.9,adult Breakthrough bleeding on depo provera Breast lump on left side at 11 o'clock position BV (bacterial vaginosis) Chronic cough Cough Depression screening Encounter for annual routine gynecological examination Family history of breast cancer in first degree relative GERD (gastroesophageal reflux disease) Goiter Hx of renal calculi Hypovitaminosis D Iron deficiency anemia due to chronic blood loss Low thyroid stimulating hormone (TSH) level Morbid obesity Morbid obesity with BMI of 45.0-49.9, adult Obesity Onychocryptosis Onychomycosis PCOS (polycystic ovarian syndrome) Physical exam [id number] syndrome manifesting as chronic fatigue Pre-op evaluation Primary osteoarthritis, right shoulder Thyroid disease Unsatisfactory cervical Papanicolaou smear Vitamin B12 deficiency Surgical History Gastric bypass status for obesity H/O shoulder surgery History of cystoscopy History of hair or hair follicle condition History of tooth extraction Hx of dilation and curettage Hx of lithotripsy Family History Father No problems noted. 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 1. Little interest or pleasure in doing things: not at all 2. Feeling down, depressed, or hopeless: several days 3. Trouble falling or staying asleep, or sleeping too much: not at all 4. Feeling tired or having little energy: not at all 5. Poor appetite or overeating: not at all 6. Feeling bad about yourself - or that you are a failure or have let yourself or your family down: not at all 7. Trouble concentrating on things, such as reading the newspaper or watching television: not at all 8. Moving or speaking so slowly that other people could have noticed. Or the opposite - being so fidgety or restless that you have been moving around a lot more than usual: not at all 9. Thoughts that you would be better off or of hurting yourself in some way: not at all Total score: 1 Depression Screening Interpretation: Negative 94408 - PHQ-9 Billing: Yes Source: Developed by Drs. Carlos Lopez, Brigida Vega, Will Herrera and colleagues, with an educational isaias from [employer]. Thrive Questionnaire Date Thrive assessed: 12/17/22 I am a: Patient What is your living situation today?: I have a steady place to live Within the past 12 months, did the food you bought not last and you didn't have the money to get more?: Never true Within the past 12 months, did you worry whether your food would run out before you got money to buy more?: Never true Do you have trouble paying for medicines?: No Do you have trouble getting transportation to medical appointments?: No Do you have trouble paying your heating and electricity bill?: No Do you have trouble taking care of your child, family member or friend?: No Do you have trouble with day-to-day activities such as bathing, preparing meals, shopping, managing finances, etc.?: No Are you currently unemployed and looking for a job?: No Are you interested in more education?: No Please select the resources that you would like help with: None Currently or been in a relationship where the following occur: no concerns reported AUDIT C Alcohol Use Questionnaire (AUDIT-C) 1. How often do you have a drink containing alcohol?: Never Total Score: 0 HEBER-7 AMB Questionnaire HEBER-7 Date HEBER - 7 assessed: 12/17/22 Feeling nervous, anxious, or on edge: 0 = Not at all Not being able to stop or control worryin = Not at all Worrying too much about different things: 0 = Not at all Trouble relaxin = Not at all Being so restless that it is hard to sit still: 0 = Not at all Becoming easily annoyed or irritable: 0 = Not at all Feeling afraid as if something awful might happen: 0 = Not at all Total HEBER-7 score (0-4 normal; 5-9 mild; 10-14 moderate; 15-21 severe): 0 Source: Developed by Drs. Carlos Lopez, Will Vasquez and colleagues, with an educational isaias from [employer]. HEBER-7 Assessment Billing HEBER-7 Assessment Tool: HEBER-7 Assessment 58545 Review of Systems Const Denies chills, Denies fatigue, Denies fever(s) and Denies poor appetite Eyes Denies no additional complaints ENT Reports Normal hearing present Card Denies chest pain, Denies syncope, Denies rapid heart rate and Denies dyspnea Resp Denies cough and Denies dyspnea GI Denies change in stool character, Denies constipation, Denies diarrhea, Denies nausea and Denies vomiting Denies urinary frequency, Denies dysuria and Denies urinary urgency Neuro Reports Normal hearing present, Denies confusion and Denies syncope Psych Denies confusion Endo Denies fatigue Physical exam (Primary Care) Vital Signs: Last Vital Signs Pulse 76 12/17/22 10:49 BP 132/80 12/17/22 10:49 Pulse Ox 96 12/17/22 10:49 Oxygen Delivery Method Room Air 12/17/22 10:49 BMI result Body Mass Index 34.8 Tobacco/Smoking Status: Tobacco use Status Tobacco use date assessed 12/17/22 12/17/22 10:56 Patient Tobacco Use Status Never used Tobacco 12/17/22 11:11 Tobacco use type 05/25/22 13:18 e-Cigarette/Vaping Use Never Used 12/17/22 11:11 PHQ-9: PHQ-9 Score PHQ-9: Total score 1 12/17/22 11:12 Depression Screening Interpretation: Negative Thrive Assessment: Date of Thrive Assessment Date Thrive assessed 12/17/22 12/17/22 10:56 Currently or been in a relationship where the following occur: no concerns reported Const General: No confusion Orientation/consciousness: No confusion HENMT Head: Yes normocephalic and Yes atraumatic Ears: external ears normal and TM's normal bilaterally General nose exam: Normal external nose present and Normal nasal mucous membranes and turbinates present Face and sinus: Yes normal facial exam and Yes sinuses nontender Mouth: moist mucous membranes Throat: Yes tonsils normal Eyes Conjunctivae: conjunctivae normal Sclerae: sclerae normal Pupils: Equal, round and reactive pupils present and Pupils normal by confrontation EOM: EOMs intact bilaterally Direct Ophthalmoscopy: normal light reflex Neck Neck: Yes no lymphadenopathy and Yes supple Thyroid: Thyroid normal Chest Chest palpation & inspection: normal inspection of the chest Resp Effort & Inspection: normal respiratory effort Auscultation: clear to auscultation bilaterally, no crackles, no rhonchi and no wheezes Cardio Rate: regular rate Rhythm: regular rhythm Peripheral pulses: radial pulses present and dorsalis pedis present GI Inspection: Yes normal to inspection Palpation (GI): Soft to palpation, nontender and No hepatosplenomegaly present Auscultation: normoactive bowel sounds Skin General skin exam: no rashes or lesions noted Neuro General: No confusion Cranial nerves: Yes Equal, round and reactive pupils present and Yes Normal hearing present Cognition (Neuro): normal cognition Gait exam (Neuro): Normal gait present Motor exam (neuro): 5/5 motor strength present throughout Deep tendon reflexes (DTR's): Right brachioradialis reflex intensity grade: 2+, Left brachioradialis reflex intensity grade: 2+, Right patellar reflex intensity grade: 2+ and Left patellar reflex intensity grade: 2+ Extrem General: No edema Assessment and Plan Assessment & Plan (1) Osteoarthritis, hip, bilateral: Code(s): M16.0 - Bilateral primary osteoarthritis of hip Plan: Continue to follow pain management and see orthopedic. (2) Physical exam, annual: Code(s): Z00.00 - Encounter for general adult medical examination without abnormal findings Plan: Fasting labs ordered. Follow up in 1 year Plan Follow up in 1 year or sooner if needed. Orders: Orders Comprehensive [place]. Panel Fast Today K74.00 - Hepatic fibrosis, unspecified Lipid Panel Today Z13.220 - Encounter for screening for lipoid disorders TSH reflex Free T4 Today Z13.29 - Encounter for screening for other suspected endocrine disorder Complete Blood Count Auto Diff Today Z13.0 - Encounter for screening for diseases of the blood and blood-forming organs and certain disorders involving the immune mechanism Coding Level of Care Code Est Pt Prev Care 18-39y(31325) Diagnoses Osteoarthritis, hip, bilateral M16.0 Physical exam, annual Z00.00 Additional Codes HEBER-7 Assessment Billing - HEBER-7 Assessment Tool: HEBER-7 Assessment 22377 ([id number])
== END 2022-12-17 11:23 | disposition home or self-care (01) ==
PROVIDERS: PCP Internal Medicine; Visit Provider Nurse Practitioner Family
DX: M16.0 Bilateral primary osteoarthritis of hip (principal); Z00.00 Encounter for general adult medical examination without abnormal findings
CPT/HCPCS: 99395

== ENCOUNTER 2023-01-15 12:50 | Outpatient (AMB) | payer OTHER, SELFPAY ==
--- NOTE | 2023-01-15 13:00 | A.OFFVIS_ITS ---
Intake Vital Signs 01/15/23 13:11 Height 5 ft 9 in Weight 236 lb BMI 34.8 Intake Visit Reasons: OV-B/L hip primary osteoarthritis Intake Note: Kenzie is a 37 year old female who presents today for a follow up of her bilateral hip pain. Patient reports that she has had ongoing hip pain for about 7/8 months now. Her pain is felt laterally and radiates to the posterior aspect/glutes. The left is worse than the right but her pain in both is aggravated with all activities. Injections were done in both hips with pain mgmt. These injections have not offered much relief and she was referred back to us for possible discussion of HAKAN Allergies No Known Allergies Allergy (Verified 12/17/22 10:51) HPI OV-B/L hip primary osteoarthritis HPI Details 37-year-old female who presents in the office today for a follow up of bilateral hip pain. The patient claims to have chronic hip pain for 7-8 months (04/2022-05/2022). She states the pain I felt laterally and radiates to the posteriors aspect. She reports the left hip is worse then the right hip. However, both hips become aggravated with activity. The patient was evaluated by Pain Management who referred her back to our office. She has a history of bilateral hip injections while being treated by Pain Management. These injections have offered mild relief. She states she was referred back to Orthopedics to discuss possible total hip arthroplasty. [facility] Medical History Abnormal uterine bleeding (AUB) Binge-eating disorder, moderate BMI 39.0-39.9,adult Breakthrough bleeding on depo provera Breast lump on left side at 11 o'clock position BV (bacterial vaginosis) Chronic cough Cough Depression screening Encounter for annual routine gynecological examination Family history of breast cancer in first degree relative GERD (gastroesophageal reflux disease) Goiter Hx of renal calculi Hypovitaminosis D Iron deficiency anemia due to chronic blood loss Low thyroid stimulating hormone (TSH) level Morbid obesity Morbid obesity with BMI of 45.0-49.9, adult Obesity Onychocryptosis Onychomycosis PCOS (polycystic ovarian syndrome) Physical exam [id number] syndrome manifesting as chronic fatigue Pre-op evaluation Primary osteoarthritis, right shoulder Thyroid disease Unsatisfactory cervical Papanicolaou smear Vitamin B12 deficiency Surgical History Gastric bypass status for obesity H/O shoulder surgery History of cystoscopy History of hair or hair follicle condition History of tooth extraction Hx of dilation and curettage Hx of lithotripsy Family History Father No problems noted. 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 Current occupational exposures/hazards: No Cognitive needs: No Hearing needs: No Vision needs: No Female Reproductive History Menstrual Age of Menarche: 10 Review of Systems Const All systems reviewed & are unremarkable except as noted in HPI and below Physical Exam Vital Signs: BMI result Body Mass Index 34.8 Const General: cooperative, healthy appearing and no acute distress Resp Effort & Inspection: normal respiratory effort and able to speak in complete sentences Cardio Rate: regular rate Peripheral pulses: Peripheral pulses 2+ throughout GI Palpation (GI): Soft to palpation Skin Lesions: no lesions Rashes: no rashes Extrem Other: Bilateral hips: Normal to inspection. No ecchymosis, erythema, or edema. Full hip ROM in all planes. No tenderness to palpation over the greater trochanteric bursa. 5/5 strength with resisted hip flexion, knee extension, abduction, and abduction. Able to perform straight leg raise. NVI. Assessment & Plan Assessment & Plan (1) Complex regional pain syndrome i of lower limb, bilateral: Code(s): G90.523 - Complex regional pain syndrome I of lower limb, bilateral Plan Ms. Weiner is a 37-year-old female who presents in the office today for a follow up of bilateral hip pain. The patient claims to have chronic hip pain for 7-8 months (04/2022-05/2022). She states the pain I felt laterally and radiates to the posteriors aspect. She reports the left hip is worse then the right hip. However, both hips become aggravated with activity. The patient was evaluated by Pain Management who referred her back to our office. She has a history of bilateral hip injections while being treated by Pain Management. These injections have offered mild relief. She states she was referred back to Orthopedics to discuss possible total hip arthroplasty. I would like for the patient to be seen by Dr. Stiles for further evaluation and treatment. She was followed by Pain Management and received intra-articular hip injections. She states this gave her about 3 weeks of complete resolution of symptoms, after which her symptoms returned. Dr. Rinaldi diagnosed her with complex regional pain syndrome and recommended for her to evaluated by physiology. The patient is not interested in this. He also suggested a spinal stimulator implant, however, she is not interested in this either. She does not exhibit any degenerative changes on x-rays. Follow up will be with Dr. Stiles, or sooner if needed. Patient Instructions: Scribed for Cassi Tam PA-C by celine Moran scribe, on 01/15/2023 at 12:51 pm, EST. Coding Level of Care Code Est Pt Level 3 (22815) Diagnoses Complex regional pain syndrome i of lower limb, bilateral G90.523
[2023-01-15 13:11] VITALS: BMI 34.8
== END 2023-01-15 14:28 | disposition home or self-care (01) ==
PROVIDERS: PCP Internal Medicine; Visit Provider Physician Assistant
DX: G90.523 Complex regional pain syndrome I of lower limb, bilateral (principal); M25.551 Pain in right hip; M25.552 Pain in left hip
CPT/HCPCS: 99213

== ENCOUNTER → 2023-01-15 12:50 | Outpatient (BNVA) | payer OTHER, SELFPAY | PROVIDERS: PCP Internal Medicine; Visit Provider Physician Assistant | DX: G90.523 Complex regional pain syndrome I of lower limb, bilateral (principal); M25.551 Pain in right hip; M25.552 Pain in left hip | CPT/HCPCS: 99212 ==

== ENCOUNTER 2023-01-31 12:58 | Outpatient (AMB) | payer OTHER, SELFPAY ==
--- NOTE | 2023-01-31 13:04 | MHC.OFFVIS ---
Intake Vital Signs 01/31/23 13:05 Height 5 ft 9 in Weight 236 lb BMI 34.8 Intake Visit Reasons: OV - Bilateral Hip Pain Intake Note: Kenzie is a 37 year old female who presents today for a follow up of her bilateral hip pain. She was followed by Pain Management and received intra-articular hip injections. She states this gave her about 3 weeks of complete resolution of symptoms, after which her symptoms returned. Dr. Rinaldi diagnosed her with complex regional pain syndrome and recommended for her to evaluated by physiology. The patient is not interested in this. He also suggested a spinal stimulator implant, however, she is not interested in this either Allergies No Known Allergies Allergy (Verified 12/17/22 10:51) HPI OV - Bilateral Hip Pain HPI Details And 37-year-old woman with bilateral ?hip? pain. She was seen by pain management is injected both intra-articularly and in knee trochanteric bursa. Is trochanteric bursa injection was more helpful than the intra-articular injection by long shot. She has, however, returned with pain. Pain localizes to the lateral aspect of both hips. He has difficulty with stairs and extended ambulation. She denies groin pain. She has been losing weight for the last year since she had a bariatric surgery. [facility] Medical History Abnormal uterine bleeding (AUB) Binge-eating disorder, moderate BMI 39.0-39.9,adult Breakthrough bleeding on depo provera Breast lump on left side at 11 o'clock position BV (bacterial vaginosis) Chronic cough Cough Depression screening Encounter for annual routine gynecological examination Family history of breast cancer in first degree relative GERD (gastroesophageal reflux disease) Goiter Hx of renal calculi Hypovitaminosis D Iron deficiency anemia due to chronic blood loss Low thyroid stimulating hormone (TSH) level Morbid obesity Morbid obesity with BMI of 45.0-49.9, adult Obesity Onychocryptosis Onychomycosis PCOS (polycystic ovarian syndrome) Physical exam [id number] syndrome manifesting as chronic fatigue Pre-op evaluation Primary osteoarthritis, right shoulder Thyroid disease Unsatisfactory cervical Papanicolaou smear Vitamin B12 deficiency Surgical History Gastric bypass status for obesity H/O shoulder surgery History of cystoscopy History of hair or hair follicle condition History of tooth extraction Hx of dilation and curettage Hx of lithotripsy Family History Father No problems noted. 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 Tenderness to palpation greater trochanteric bursa bilaterally Negative hip impingement test bilaterally Office Procedures Joint Injection/Drain Joint Injection/Drain Details: Injected 1 mL of Decadron and 3 mL 1% lidocaine and 3 mL of 0.25% Marcaine. Site was prepped using aseptic technique. Patient tolerated the procedure well. Primary Site: other (Right greater troch bursa) Secondary Site: other (Left greater troch bursa) Approach Used: posterolateral Coding - Large joint - Glenohumeral/Tronchanteric Bursa/Intraarticular Procedure code (CPT) selection complete Results Reviewed Results Reviewed: 01/31/23 13:25 BUPivacaine MPF 0.25 % [Sensorcaine-MPF 0.25% 10 ML] 10 ml .ROUTE .STK-MED ONE Lidocaine HCl 1 % [Xylocaine 1 %] 2 ml .ROUTE .STK-MED ONE Lidocaine HCl 2 % MPF [Xylocaine 2 % MPF] 5 ml .ROUTE .STK-MED ONE dexAMETHasone sod phosphate [Decadron] 4 mg .ROUTE .STK-MED ONE Assessment & Plan Assessment & Plan (1) Greater trochanteric bursitis of both hips: Code(s): M70.61 - Trochanteric bursitis, right hip; M70.62 - Trochanteric bursitis, left hip Plan: Bilateral greater trochanteric bursitis. This does respond well to injections. I I injected both bursa without incident. She can follow up in 3 months for repeat injections should she so desire (2) S/P laparoscopic sleeve gastrectomy: Code(s): Z98.84 - Bariatric surgery status (3) Obesity (BMI 30-39.9): Code(s): E66.9 - Obesity, unspecified Coding Level of Care Code Est Pt Level 4 (91357) Diagnoses Greater trochanteric bursitis of both hips M70.61; M70.62 S/P laparoscopic sleeve gastrectomy Z98.84 Obesity (BMI 30-39.9) E66.9 CPT Codes Coding - 40379 Large joint: 24659 - Large joint ([id number]) Coding - Joint 7: 84592 - Glenohumeral/Tronchanteric Bursa/Intraarticular ([id number])
[2023-01-31 13:05] VITALS: BMI 34.8
== END 2023-01-31 13:40 | disposition home or self-care (01) ==
PROVIDERS: PCP Internal Medicine; Visit Provider Orthopaedic Surgery
DX: M70.61 Trochanteric bursitis, right hip (principal); M70.62 Trochanteric bursitis, left hip
CPT/HCPCS: 20610; 99214

== ENCOUNTER → 2023-01-31 12:58 | Outpatient (BNVA) | payer OTHER, SELFPAY | PROVIDERS: PCP Internal Medicine; Visit Provider Orthopaedic Surgery | DX: M70.61 Trochanteric bursitis, right hip (principal); M70.62 Trochanteric bursitis, left hip; E66.9 Obesity, unspecified; Z98.84 Bariatric surgery status; Z68.34 Body mass index [BMI] 34.0-34.9, adult | CPT/HCPCS: 20610; 99212; J1100 ==

== ENCOUNTER 2023-04-16 07:44 | Outpatient (AMB) | payer OTHER, BC, SELFPAY ==
[2023-04-16 07:53] VITALS: BP 110/76; BMI 35.1
--- NOTE | 2023-04-16 07:53 | A.OFFVIS_ITS ---
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 Health Analyst: Health Analyst Present (Belinda) Allergies No Known Allergies Allergy (Verified 04/16/23 07:56) HPI HPI Comments History of Present Illness Details She is a premenopausal woman presenting for annual examination. Doing well with complaints of burning and frequency of urination. Using OTC AZO since 04/13/2023. She tries to eat healthy and stays active with exercise. Irregular bleeding, light with the Mirena. She denies vaginal itching and irritation. Sexually active, STI screening offered; she declines. Denies family history of ovarian or colon cancer. Last pap smear 2019, was negative. Mammogram up-to-date. [facility] Medical History Hx of renal calculi GERD (gastroesophageal reflux disease) BMI 39.0-39.9,adult Obesity Vitamin B12 deficiency Low thyroid stimulating hormone (TSH) level Onychomycosis Onychocryptosis Cough Physical exam Binge-eating disorder, moderate Hypovitaminosis D Goiter Thyroid disease Morbid obesity Depression screening Chronic cough [id number] syndrome manifesting as chronic fatigue Pre-op evaluation Breast lump on left side at 11 o'clock position Encounter for annual routine gynecological examination Primary osteoarthritis, right shoulder Iron deficiency anemia due to chronic blood loss Family history of breast cancer in first degree relative Unsatisfactory cervical Papanicolaou smear BV (bacterial vaginosis) Morbid obesity with BMI of 45.0-49.9, adult Abnormal uterine bleeding (AUB) Breakthrough bleeding on depo provera PCOS (polycystic ovarian syndrome) Surgical History Gastric bypass status for obesity History of cystoscopy Hx of lithotripsy Hx of dilation and curettage H/O shoulder surgery History of tooth extraction History of hair or hair follicle condition Family History Father No problems noted. 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 Current occupational exposures/hazards: No Cognitive needs: No Hearing needs: No Vision needs: No Female Reproductive History Menstrual Age of Menarche: 10 control method: progestin IUCD (Mirena 03/2020) Total pregnancies: 0 Date of last pap smear: 05/18/20 (neg pap and hpv) History of abnormal pap smear: No (03/14/20 unsat neg hpv) Review of Systems Const All systems reviewed & are unremarkable except as noted in HPI and below Reports as per HPI Eyes Reports no additional complaints ENT Reports no additional complaints Card Reports no additional complaints Resp Reports no additional complaints GI Reports as per HPI and Reports no additional complaints Reports as per HPI Musc Reports no additional complaints Skin/Breast Reports as per HPI Neuro Reports no additional complaints Psych Reports no additional complaints Endo Reports no additional complaints Que/Lymph Reports no additional complaints Aller/Immun Reports no additional complaints Physical Exam Vital Signs: Last Vital Signs BP 110/76 04/16/23 07:53 BMI result Body Mass Index 35.1 Const General: cooperative, healthy appearing, no acute distress, well developed and alert Orientation/consciousness: patient oriented x3 HEENT Head: Yes normal to inspection Eyes General: appearance normal, both eyes and all related structures Neck Neck: Yes normal visual inspection Thyroid: Thyroid normal Chest Chest palpation & inspection: normal inspection of the chest and other (no puckering, dimpling, peau de orange, retraction, discharge, masses) Breast/axilla inspection: normal inspection of the breasts Breast/axilla palpation: normal palpation of the breasts Resp Effort & Inspection: normal respiratory effort GI Inspection: Yes normal to inspection Palpation (GI): Soft to palpation Rectal Exam - Female: deferred General: Yes bladder normal to palpation External Female Exam: normal external appearance and normal appearance of the urethra Speculum Exam - Vagina: normal appearance of the vagina, normal palpation and normal vaginal discharge Speculum Exam - Cervix: normal appearance of the cervix, normal palpation and Other cervical findings present (IUD strings present) Bimanual exam- vagina & uterus: normal bimanual exam, normal palpation, uterine size normal, bladder normal to palpation, normal palpation and non-tender Bimanual Exam- Adnexa, other: no masses Skin General skin exam: no rashes or lesions noted Rashes: no rashes Neuro General: patient oriented x3 Cognition (Neuro): normal cognition Extrem General: Yes normal to inspection Psych Attitude: cooperative Thought process: Normal thought process present Results AMB Urinalysis, Automated UA Leukoctes 2 Karen/uL Last Edit by Jacklyn Roger Reyes on 04/16/23 08:07 UA Nitrite Positive Last Edit by Jacklyn Roger Reyes on 04/16/23 08:07 UA Urobilinogen 0.5 mg/dL Last Edit by Jacklyn Roger [facility] on 04/16/23 08 :07 UA Protein 0.5 mg/dL Last Edit by Jacklyn Roger Reyes on 04/16/23 08:07 UA pH 6.0 Last Edit by Jacklyn Roger [facility] on 04/16/23 08:07 UA Blood 0 Antony/uL Last Edit by Jacklyn Roger Reyes on 04/16/23 08:07 UA Specific Shokan 1.015 Last Edit by Jacklyn Roger [facility] on 04/16/23 08:07 UA Ketone Negative Last Edit by Jacklyn Roger Reyes on 04/16/23 08:07 UA Bilirubin 1 mg/dL Last Edit by Jacklyn Roger [facility] on 04/16/23 08:07 UA Glucose 0 mg/dL Last Edit by Jacklyn Roger [facility] on 04/16/23 08:07 Results Reviewed Results Reviewed: Laboratory Last Values Urine pH (Auto) 6.0 04/16/23 08:05 Specific Shokan (Auto) 1.015 04/16/23 08:05 Urine Protein (Auto) 0.5 mg/dL 04/16/23 08:05 Glucose (UA)(Auto) 0 mg/dL 04/16/23 08:05 Urine Ketones (Auto) Negative 04/16/23 08:05 Urine Blood (Auto) 0 Antony/uL 04/16/23 08:05 Urine Nitrite (Auto) Positive 04/16/23 08:05 Urine Bilirubin (Auto) 1 mg/dL 04/16/23 08:05 Urine Urobilinogen (Auto) 0.5 mg/dL 04/16/23 08:05 Leukocyte Esterase (Auto) 2 Karen/uL 04/16/23 08:05 Assessment & Plan Assessment & Plan (1) Well female exam without gynecological exam: Code(s): Z00.00 - Encounter for general adult medical examination without abnormal findings Plan: Current recommendations for pap smears per ASCCP guidelines. Breast awareness and periodic breast exams. Maintain a healthy lifestyle including a well balanced diet and routine exercise. All of her questions and concerns were addressed to the best of my ability. 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 (2) Dysuria: Code(s): R30.0 - Dysuria Plan: Discussed: Increase hydration, mostly water. Limit caffeine to one cup a day or eliminate altogether. Avoid carbonated, sugary or artificial sweetened beverages. Always clean and wipe from front to back. Empty your bladder often and when the urge. Urinate after intimacy. Take as directed and complete any medications that may be ordered. If no improvement, call the office for further recommendations. Urology consult if indicated. Orders: Orders AMB Urinalysis Automated Today R35.0 - Frequency of micturition Urine Culture Today R35.0 - Frequency of micturition Medications: New sulfamethoxazole-trimethoprim 800-160 mg (Bactrim DS) 1 tab PO BID 6 tabs 0RF 3 days Coding Level of Care Code Est Pt Prev Care 18-39y(81846) Diagnoses Well female exam without gynecological exam Z00.00 Dysuria R30.0
== END 2023-04-16 09:19 | disposition home or self-care (01) ==
PROVIDERS: Visit Provider Advanced Practice Midwife
DX: Z01.419 Encounter for gynecological examination (general) (routine) without abnormal findings (principal); R30.0 Dysuria; R35.0 Frequency of micturition
CPT/HCPCS: 99395

== ENCOUNTER 2023-04-16 07:44 | Outpatient (REF) | payer OTHER, SELFPAY | END 2023-04-16 07:45 | disposition home or self-care (01) | LOC: HO.LAB 07:44 | PROVIDERS: Visit Provider Advanced Practice Midwife | DX: Z01.419 Encounter for gynecological examination (general) (routine) without abnormal findings (principal); N93.9 Abnormal uterine and vaginal bleeding, unspecified; R30.0 Dysuria; R35.0 Frequency of micturition; Z97.5 Presence of (intrauterine) contraceptive device | CPT/HCPCS: 81003; 87086 ==

== ENCOUNTER 2023-04-29 11:42 | Outpatient (REF) | payer OTHER, BC, SELFPAY ==
--- NOTE | ~2023-04-29 | MM_ITS ---
EXAMINATION: MM SCREENING DIGITAL BREAST TOMOSYNTHESIS, BILATERAL CLINICAL INFORMATION: Screening. Asymptomatic. COMPARISON: Mammography: This study is compared with prior exams dating back to 2020. TECHNIQUE: Digital breast tomosynthesis is performed in both the craniocaudal and mediolateral oblique views along with computer-aided detection (CAD). Synthesized 2D images are generated from the tomosynthesis. FINDINGS: The breasts are heterogeneously dense, which may obscure small masses (ACR BI-RADS breast composition Category c). There are no significant masses, abnormal calcifications, or other abnormalities. MM/MM tomosynthesis screening BI IMPRESSION: No mammographic evidence of malignancy. ASSESSMENT: BI-RADS BI-RADS 1 - Negative RECOMMENDATION: Routine annual mammography screening. 1 year F/U This examination should not preclude the clinical evaluation of a suspicious palpable abnormality. This patient's information was entered into a reminder system with a target due date for their next mammogram.
== END 2023-04-29 11:43 | disposition home or self-care (01) ==
LOC: HO.MAMMO 11:42
PROVIDERS: PCP Internal Medicine; Visit Provider Internal Medicine
DX: Z12.31 Encounter for screening mammogram for malignant neoplasm of breast (principal)
CPT/HCPCS: 77063; 77067

== ENCOUNTER → 2023-04-29 11:45 | Outpatient (BNV) | payer OTHER, BC, SELFPAY | PROVIDERS: PCP Internal Medicine; Visit Provider Radiology Diagnostic Radiology | DX: Z12.31 Encounter for screening mammogram for malignant neoplasm of breast (principal) | CPT/HCPCS: 77063; 77067 ==

== ENCOUNTER 2023-06-03 08:27 | Outpatient (AMB) | payer OTHER, BC, SELFPAY ==
--- NOTE | 2023-06-02 13:43 | MHC.OFFVIS ---
Intake Vital Signs 06/03/23 08:30 Height 5 ft 9 in Weight 238 lb BMI 35.1 Intake Visit Reasons: OV-B/L hip injection-last injection 01/31/23 Intake Note: Kenzie is a 37 year old female who presents today for a follow up of her bilateral hips, last injection done bilaterally 01/31/23. Patient rpeots that these injections were helpful for about 4-5 weeks. She would like to repeat injections. The left hip pain has started to radiate to the gluteals and into the lower back. Allergies No Known Allergies Allergy (Verified 06/03/23 08:30) HPI OV-B/L hip injection-last injection 01/31/23 HPI Details 4 months s/p bilateral greater troch bursal injections. [facility] Medical History Hx of renal calculi GERD (gastroesophageal reflux disease) BMI 39.0-39.9,adult Obesity Vitamin B12 deficiency Low thyroid stimulating hormone (TSH) level Onychomycosis Onychocryptosis Cough Physical exam Binge-eating disorder, moderate Hypovitaminosis D Goiter Thyroid disease Morbid obesity Depression screening Chronic cough [id number] syndrome manifesting as chronic fatigue Pre-op evaluation Breast lump on left side at 11 o'clock position Encounter for annual routine gynecological examination Primary osteoarthritis, right shoulder Iron deficiency anemia due to chronic blood loss Family history of breast cancer in first degree relative Unsatisfactory cervical Papanicolaou smear BV (bacterial vaginosis) Morbid obesity with BMI of 45.0-49.9, adult Abnormal uterine bleeding (AUB) Breakthrough bleeding on depo provera PCOS (polycystic ovarian syndrome) Surgical History Gastric bypass status for obesity History of cystoscopy Hx of lithotripsy Hx of dilation and curettage H/O shoulder surgery History of tooth extraction History of hair or hair follicle condition Family History Father No problems noted. 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 Current occupational exposures/hazards: No Cognitive needs: No Hearing needs: No Vision needs: No Female Reproductive History Menstrual Age of Menarche: 10 Review of Systems Const All systems reviewed & are unremarkable except as noted in HPI and below Physical Exam Vital Signs: BMI result Body Mass Index 35.1 Const General: no acute distress, alert and awake Orientation/consciousness: patient oriented x3 HEENT Head: Yes normocephalic and Yes atraumatic Eyes EOM: EOMs intact bilaterally Resp Effort & Inspection: normal respiratory effort and able to speak in complete sentences Cardio Jugular venous distension: no JVD Skin General skin exam: turgor normal Rashes: no rashes Neuro General: patient oriented x3 Extrem Other: Greater trochanteric bursa ttp bilaterally Psych Appearance: grossly normal Affect: normal affect Attitude: cooperative Office Procedures Joint Injection/Drain Joint Injection/Drain Details: Injected 1 mL of Decadron and 3 mL 1% lidocaine and 3 mL of 0.25% Marcaine. Site was prepped using aseptic technique. Patient tolerated the procedure well. Primary Site: other (right trochanteric bursa) Secondary Site: other (Left trocvhanteric bursa) Approach Used: posterolateral Coding - Large joint - Glenohumeral/Tronchanteric Bursa/Intraarticular Procedure code (CPT) selection complete Assessment & Plan Assessment & Plan (1) Greater trochanteric bursitis of both hips: Code(s): M70.61 - Trochanteric bursitis, right hip; M70.62 - Trochanteric bursitis, left hip Plan: Injected bilateral greater troch bursa. She has bilateral bursal pain and I suspect she would benefit from PT for gluteal strengthening and pelvic stabilization. Orders: Orders PT Evaluation and Treatment Today M70.61 - Trochanteric bursitis, right hip, M70.62 - Trochanteric bursitis, left hip Coding Level of Care Code Est Pt Level 3 (45087) Diagnoses Greater trochanteric bursitis of both hips M70.61; M70.62 CPT Codes Coding - Large joint: 05139 - Large joint ([id number]) Coding - Joint 7: 87492 - Glenohumeral/Tronchanteric Bursa/Intraarticular ([id number])
[2023-06-03 08:30] VITALS: BMI 35.1
== END 2023-06-03 09:05 | disposition home or self-care (01) ==
PROVIDERS: PCP Internal Medicine; Visit Provider Orthopaedic Surgery
DX: M70.61 Trochanteric bursitis, right hip (principal); M70.62 Trochanteric bursitis, left hip
CPT/HCPCS: 20610; 99213

== ENCOUNTER → 2023-06-03 08:27 | Outpatient (BNVA) | payer BC, OTHER, SELFPAY | PROVIDERS: PCP Internal Medicine; Visit Provider Orthopaedic Surgery | DX: M70.61 Trochanteric bursitis, right hip (principal); M70.62 Trochanteric bursitis, left hip | CPT/HCPCS: 20610; 99212; J0665; J1100 ==

== ENCOUNTER 2023-06-17 14:58 | Outpatient (AMB) | payer OTHER, SELFPAY ==
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
[2023-06-17 15:02] VITALS: BP 132/82; BMI 36.2
== END 2023-06-17 15:26 | disposition home or self-care (01) ==
PROVIDERS: PCP Internal Medicine; Visit Provider Internal Medicine
DX: G47.00 Insomnia, unspecified (principal); F32.1 Major depressive disorder, single episode, moderate; F41.9 Anxiety disorder, unspecified
CPT/HCPCS: 99213

== ENCOUNTER 2023-06-27 08:00 | Outpatient (RCR) | payer BC, OTHER, SELFPAY ==
--- NOTE | 2023-06-14 14:49 | MHC.PT.EP ---
[facility] [place] [facility] [place] [facility] [place] [facility] [address] Brittney Rendon [address] [phone] F: [phone] F: [phone] F: [phone] F: [phone] Physical Therapy Plan of Care Date of Evaluation: 06/14/23 Date of Surgery: Diagnosis: BILATERAL TROCHANTERIC BURSITIS Assessment: 37 YO FEMALE REF TO PT FOR MARGARITA HIP TROCHANTERIC BURSITIS, WHICH HAS GRADUALLY INCR SINCE HER GASTRIC BYPASS IN 01/2022 WITH A WEIGHT LOSS OF >100 LBS. SHE HAS HAD MARGARITA HIP INJECTIONS WITH TEMPORARY RELIEF AND IS BEING FOLLOW[place] [facility] [facility]. 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 THE Pt HAS DCER POSTURAL AWARENESS, (+) LEFT SEAN, MARGARITA PSOAS/ HIP IR/CALF TIGHTNESS, (+) LUMBOPELVIC ASYMM AND INSTABILITY-> WEAKNESS IN DEEP CORE STABILIZERS, AND STRENGTH DEFICITS IN HER Lt > Rt GLUTE COMPLEX. THE Pt IS A GOOD PT CANDIDATE TO ADDRESS STRENGTHENING/ STABILIZATION, POSTURE, PAIN MANAGEMENT, AND SX MANAGEMENT TECHN. Frequency and Duration: The patient will be seen 2 x WK x 5 WKS Short Term Goals: *IMPROVE LUMBOPELVIC STABILITY *Pt'S MARGARITA HIP PAIN DECR TO 2-310 *INCR FLEXIB IN PSOAS/HIP IR/ CALF MM TO IMPROVE EFFICIENCY OF GAIT / FUNCTIONAL SQUAT *INCR ACTIV OF LEFT GLUTE COMPLEX TO INCREASE LUMBOPELVIC STAB/ SYMMETRY Gasoline Attendant Goals: *Pt WILL IMPROVE LUMBOPELVIC/ MARGARITA LEs STRENGTH BY 1 GRADE *Pt INDEP W PROGRESSIVE HEP AND SELF-SX MGMT TECHN *WFL MARGARITA HIP IR Pt RESUME REG ADLs / GYM WORKOUTS/ FITNESS WALKING , EVIDENT W IMPROVED LEFI SCORE BY 8-10 POINTS (AT EVAL 20/80 ) *Pt SIMULATE 3:3 ADL/ WORK TASKS W PROPER MECH (FULL SQUAT, LIFTING/ CARRYING) W/O HIP SXS Treatment Plan: Modalities to reduce pain, spasms and effusion. Manual therapy to restore motion and function. Therapeutic exercise to improve strength and flexibility. Neuromuscular re-education for posture and balance. Therapeutic activities to return to functional activities of daily living. Electronically signed by: ALDA MEJIA PT Please sign and return to therapist. Thank you for your referral.
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
== END 2023-08-02 15:17 | disposition home or self-care (01) ==
LOC: HO.PT 08:00
PROVIDERS: PCP Internal Medicine; Visit Provider Orthopaedic Surgery
DX: M70.61 Trochanteric bursitis, right hip (principal); M70.62 Trochanteric bursitis, left hip
CPT/HCPCS: 97110; 97140; 97162; 97530